=== PATIENT | male | born 1980 | race Caucasian/White ===

== ENCOUNTER 2021-12-22 11:02 | Inpatient (IN) | payer MEDICARE, MEDICAID, SELFPAY ==
[2021-12-22] VITALS (18 sets, daily range): BP systolic 156–200; BP diastolic 96–144; PULSE 90–131; RESP 14–21; TEMP 37–37.7; O2SAT 94–98; BMI 38.7
--- NOTE | ~2021-12-22 | CT_ITS ---
EXAMINATION: CTA brain carotid DATE: 12/22/2021 12:35 INDICATION: Left hemiparesis. TECHNIQUE: Computed tomographic angiography (CTA) of the head was performed with 100 mL Omnipaque-350 intravenous contrast. CTA of the neck was performed with intravenous contrast. Automated exposure co ntrol and iterative reconstruction technique were employed. The dose-length product was 1243.72 mGy-c m. Maximum intensity projection and volume rendered 3D-reconstructions were created by the [facility] on a separate workstation. COMPARISON: Head CT 12/22/2021 FINDINGS: HEAD CTA: There is hypoattenuation in the right frontoparietal region involving oh matter white mat ter, likely an acute infarct. There is hypoattenuation in the left temporal parietal occipital region involving oh matter white matter, likely an acute infarct. There is no intracranial hemorrhage or abnormal mass lesion. The ventricles are normal in size. The vertebral arteries are codominant. There is no significant stenosis of basilar artery or the posterior cerebral arteries. There is no signifi cant stenosis of the intracranial internal carotid arteries or anterior or middle cerebral arteries. The orbits are normal. There is mild mucosal thickening in the paranasal sinuses. The mastoid air rowan ls are normal. There is a 2.1 cm calcified mass in the posterior scalp, likely an old hematoma. NECK CTA: There are no pathologically enlarged lymph nodes. There is mild plaque in proximal right in ternal carotid artery. There is 0% stenosis of the proximal right internal carotid artery relative to normal distal artery lumen diameter (NASCET criteria). There is 0% stenosis of the proximal left int ernal carotid artery relative to normal distal artery lumen diameter. There is mild cervical spondylo sis. IMPRESSION: 1. Acute infarcts in the right frontoparietal region and left temporal parietal occipital region. 2. No aneurysm or significant intracranial arterial stenosis. 3. 0% stenosis of the proximal internal carotid arteries relative to normal distal artery lumen diame ters (NASCET criteria). Reviewed, dictated and finalized at location A. IMPRESSION: 1. Acute infarcts in the right frontoparietal region and left temporal parietal occipital region. 2. No aneurysm or significant intracranial arterial stenosis. 3. 0% stenosis of the proximal internal carotid arteries relative to normal dis peyman artery lumen diameters (NASCET criteria).
--- NOTE | ~2021-12-22 | XR_ITS ---
EXAMINATION: XR chest 1V portable DATE: 12/22/2021 11:21 INDICATION: Left-sided weakness and chest pain TECHNIQUE: frontal view of the chest was obtained. COMPARISON: None FINDINGS: Lung volumes are decreased particularly on the right there is elevation the right hemidiaphragm. Asym metric hazy opacities in the right mid to lower lung zone. No pneumothorax or definitive pleural effu amy. Cardiomegaly. IMPRESSION: 1. Volume loss in the right hemithorax with hazy which could represent small pleural effusion, atelec tasis or pneumonia. 2. Cardiomegaly. Reviewed, dictated and finalized at location B. IMPRESSION: 1. Volume loss in the right hemithorax with hazy which could represent small pl eural effusion, atelectasis or pneumonia. 2. Cardiomegaly.
--- NOTE | ~2021-12-22 | CT_ITS ---
EXAMINATION: CT brain wo con DATE: 12/22/2021 13:08 INDICATION: Head injury from fall out of bed TECHNIQUE: Computed tomography (CT) of the head was performed without intravenous contrast. The mA wa s adjusted according to patient size. Iterative reconstruction technique was employed. Exam dose: 68 1.00 mGy-cm total exam DLP. COMPARISON: CT brain carotid FINDINGS: Acute right parietal and left temporal parietal occipital regions are again noted. No midli ne shift. Normal ventricular sizes. No intracranial hemorrhage. No subdural or epidural hematoma. No fracture or bone destruction of the cranial vault. Small mucus retention cyst or polyp at the lower lateral wall of the left maxillary sinus. The parana lucita sinuses and mastoid air cells otherwise are normally developed and aerated. IMPRESSION: Acute right frontal and left temporal parietal occipital infarcts Reviewed, dictated and finalized at Location A. Reviewed, dictated and finalized at location A.
--- NOTE | ~2021-12-22 | CT_ITS ---
EXAMINATION: CT brain wo con DATE: 12/22/2021 11:24 INDICATION: Left-sided weakness TECHNIQUE: Computed tomography (CT) of the head was performed without intravenous contrast. Sagittal and coronal reconstructions were performed. The mA was adjusted according to patient size. Iterative reconstruction technique was employed. The dose-length product was 605.33 mGy-cm. COMPARISON: None FINDINGS: There is a large region of loss of oh-white matter differentiation centered in the left temporal pa rietal occipital region suspicious for recent infarct. Additional small region of oh-white matter d ifferentiation loss in the posterior right frontal lobe also suspicious for recent infarct. No acute intracranial hemorrhage or abnormal extra axial fluid collection. Ventricles are normal and symmetric . No mass/mass effect. 2.2 x 2.0 x 1.3 cm subcutaneous nodule at the posterior scalp with subtle inte rnal calcification most consistent with a trichilemmal cysts. The orbits, paranasal sinuses and masto id air cells are normal. IMPRESSION: 1. Regions of cytotoxic edema consistent with relatively recent infarcts, the larger involving the le ft temporal parietal occipital region and with small region in the posterior right frontal lobe. Reviewed, dictated and finalized at location B. IMPRESSION: 1. Regions of cytotoxic edema consistent with relatively recent infarcts, the l arger involving the left temporal parietal occipital region and with small rosemary on in the posterior right frontal lobe.
--- NOTE | 2021-12-22 11:10 | ECG_ITS ---
Measurements Intervals [place] Rate: 114 P: NE: 0 QRS: 22 QRSD: 93 T: -65 QT: 332 QTc: 459 Interpretive Statements ATRIAL FIBRILLATION WITH RAPID VENTRICULAR RESPONSE NONSPECIFIC T-WAVE ABNORMALITY ABNORMAL ECG NO PREVIOUS ECG AVAILABLE FOR COMPARISON Electronically Signed On 12-22-2021 16:27:46 CDT by Anjum Kong M.D.
--- NOTE | 2021-12-22 11:10 | ED.NEUROSD ---
HPI - Neuro Symptoms/Deficit General Chief Complaint: Suspected CVA Stated Complaint: chest pain,fall,L arm flaccid,LNW 2000 yest Time Seen by Provider: 12/22/21 11:09 Source: patient and EMS Mode of arrival: EMS Limitations: altered mental status and clinical condition History of Present Illness HPI Narrative: Patient is a 41-year-old male with a history of developmental delay, diabetes, presenting to the emergency department for evaluation of altered mental status, left arm weakness with last known well last night around 8 PM. Patient reportedly was found on the side of his bed unable to move his left upper extremity by caregivers who helps to take care of him. Patient has been living independently, of note, father recently . Patient is oriented to person, not to place or time. Is not able to provide any history. Given acuity of condition, was concern for acute CVA given placidity in left upper extremity. Related Data Allergies Allergy/AdvReac Type Severity Reaction Status Date / Time No Known Allergies Allergy Verified 12/22/21 12:06 Review of Systems Review of Systems: ROS unobtainable: Yes unobtainable due to mental status [facility] Social History Social History (Updated 12/22/21 @ 11:38 by Jayna Suresh MD) Smoking status: Never smoker Alcohol intake: never Substance use: never Living arrangements: alone Occupation/Education: unemployed Gender identity (if verbalized by the patient): Male Exam Narrative: GENERAL: Awake, alert, fatigued appearing HEAD: Normocephalic, atraumatic. EYES: PERRLA and EOMI. ENT: Nares clear, no rhinorrhea or epistaxis. Mucous membranes moist. NECK: Supple. CHEST: No respiratory distress, breathing even and non labored HEART: Tachycardic rate, irregularly irregular rhythm, consistent with atrial fibrillation ABDOMEN:Non distended, non tender, no grimace with palpation EXTREMITIES: Patient unable to move his left upper extremity. No lower extremity edema bilaterally. SKIN: Warm, dry, no rash. NEURO: Patient is oriented to person, not to place or time. His left upper extremity has 0/5 strength. Right upper extremity 5/5 strength. Strength in lower extremities 5/5 RLE and 3/5 LLE. Patient is not able to comprehend [id number], [id number]. No facial droop or asymmetry noted. Intact distal sensation in the right upper extremity and bilateral lower extremities. Course Vital Signs Vital signs: Vital Signs Pulse Rate 122 H 12/22/21 11:06 Respiratory Rate 21 H 12/22/21 11:06 Pulse Oximetry 95 12/22/21 11:06 Pulse Rate 95 12/22/21 14:38 Respiratory Rate 15 12/22/21 14:38 Blood Pressure 161/96 H 12/22/21 14:38 Pulse Oximetry 96 12/22/21 14:38 MDM - Neuro Symptoms/Deficit MDM Narrative Medical decision making narrative: Patient is a 41-year-old male presenting for evaluation of altered mental status, noted to have left upper extremity flaccidity on exam. Last known well greater than 12 hours ago. NIH stroke scale score of 14 however exam is limited due to the patient's baseline developmental delay. Pt noted to be hypertensive thus placed on nicardipine infusion. CT scan with evidence of cytotoxic edema with areas of numerous infarcts including parietal and frontal lobe. Unfortunately, patient is outside of the tPA window. EKG consistent with A. fib with RVR which would be a new diagnosis for the patient. Pt given IV fluids. CT reviewed. I called immediately to [facility] to arrange for the patient to be transferred. They asked for CTA head/neck prior to transfer. CTA head/neck shows no acute thrombus that is intervenable. [facility] neurology states that this patient will not be accepted for time critical diagnosis and may be transferred over the next several days if a bed is available. They have no beds available at this time they stated that we may need to manage him from an acute standpoint based on his troponin elevation
[2021-12-22 11:19] LABS: Glucose Point of Care 158 mg/dl (65-105)
--- NOTE | 2021-12-22 11:19 | PC.NURSE ---
pt at CT at this time
[2021-12-22] MEDS: SODIUM CHLORIDE 0.9% IV 1,000 ML 999 ML IV CONT ×3 (11:47→14:55)
--- NOTE | 2021-12-22 11:59 | PC.NURSE ---
This RN tried to call number in chart to update on POC. Number not in service.
[2021-12-22 12:00] LABS: Basophils Percent Auto 0.3 % (0.2-1.2); Hematocrit 41.9 % (42.0-52.0); Hemoglobin 13.7 g/dL (14.0-18.0); Immature Granulocyte Absolute 0.08 K/mm3 (0.00-0.031); Immature Granulocyte Percent A 0.5 % (0-0.5); Lymphocytes Absolute Auto 1.22 K/mm3 (0.9-3.2); Lymphocytes Percent Auto 7.8 % (18.3-44.2); Mean Corpuscular HGB Conc 32.7 g/dl (32-36); Mean Corpuscular Hemoglobin 27.7 pg (26-34); Mean Corpuscular Volume 84.8 fl (80-100); Mean Platelet Volume 12.3 fl (7.4-10.4); Monocytes Percent Auto 6.5 % (2.6-8.5); Neutrophils Absolute Auto 13.3 K/mm3 (1.3-6.7); Neutrophils Percent Auto 84.9 % (45.5-73.1); Platelet Count Result 322 k/mm3 (150-375); Red Blood Count 4.94 M/mm3 (4.6-6.20); Red Cell Distribution Width 14.2 % (11.5-14.5); White Blood Count 15.7 K/mm3 (4.5-10.0)
[2021-12-22 12:13] LABS: Alanine Aminotransferase 29 U/L (4-50); Albumin Level 4.4 g/dL (3.5-5.1); Alkaline Phosphatase 107 U/L (38-126); Anion Gap 10 mmol/L (8-16); Aspartate Amino Transferase 54 U/L (17-59); Bilirubin,Total 0.9 mg/dL (0.2-1.3); Blood Urea Nitrogen 18 mg/dL (9-20); Calcium 9.3 mg/dL (8.4-10.2); Carbon Dioxide 30 mmol/L (22-30); Chloride 101 mmol/L (98-107); Estimated Glomerular Filt Rate 52; Glucose 156 mg/dL (65-110); Potassium 3.3 mmol/L (3.4-5.0); Sodium 141 mmol/L (137-145)
[2021-12-22 12:15] LABS: INR 1.2; Partial Thromboplastin Time 24.6 SECONDS (22.3-36.8); Prothrombin Time 14.7 Seconds (11.1-14.7)
[2021-12-22] MEDS: niCARdipine 20 MG/200 ML 20 MG/200 ML BAG 50 MG IV CONT (12:39)
--- NOTE | 2021-12-22 13:06 | PC.NURSE ---
pt got up on his own to go to the bathroom and fell w/ IV pole. pt IV pulled out. pt back from CT scan now.
--- NOTE | 2021-12-22 13:20 | PC.NURSE ---
bed alarm placed under pt. call light within reach.
[2021-12-22 13:32] LABS: Add Urine Microscopic? YES; Appearance Urine Clear (Clear); Bilirubin Urine Negative (Negative); Blood Urine 1+ (Negative); Color Urine Yellow (Yellow); Glucose Urine UA 1+ mg/dL (Negative); Ketones Urine Negative (Negative); Leukocyte Esterase Ur Negative LEU/UL (Negative); Mucus Urine Rare /lpf; Nitrate Urine Negative (Negative); Protein Urine 2+ mg/dL (Negative); RBC Urine 0-2 /hpf (0-2); Specific Grav Ur 1.016 (1.001-1.035); Urobilinogen Urine Negative mg/dL (<2.0); WBC Urine 0-3 /hpf
[2021-12-22 13:34] LABS: Lactic Acid Reflex 2.7 mmol/L (0.7-2.1)
[2021-12-22 14:00] LABS: SARS-CoV-2 RNA PCR Negative
[2021-12-22 14:04] LABS: Thyroid Stimulating Hormone 0.895 uIU/mL (0.465-4.680)
[2021-12-22 14:24] LABS: Creatine Kinase 316 U/L (55-170)
[2021-12-22] MEDS: dilTIAZem HCl INJ 25 MG/5 ML VIAL 10 MG IV PUSH (14:32)
--- NOTE | 2021-12-22 14:44 | ECG_ITS ---
Measurements Intervals [place] Rate: 99 P: NE: 0 QRS: 32 QRSD: 96 T: 259 QT: 388 QTc: 498 Interpretive Statements ATRIAL FIBRILLATION NONSPECIFIC T-WAVE ABNORMALITY COMPARED TO ECG 12/22/2021 11:31:36 NO SIGNIFICANT CHANGES Electronically Signed On 12-22-2021 16:49:17 CDT by Anjum Kong M.D.
[2021-12-22] MEDS: HEPARIN SOD/D5W 100 UNITS/ML 25,000 UNITS/250 ML BAG 15 UNITS IV CONT (14:57)
[2021-12-22] MEDS: dilTIAZem 100 MG/100 ML 100 MG/100 ML BAG IV CONT (15:07)
[2021-12-22 15:48] LABS: Basophils Absolute Auto 0.1 K/mm3 (0.0-0.1); Basophils Percent Auto 0.3 % (0.2-1.2); Eosinophils Percent Auto 0.1 % (0-4.4); Hematocrit 43.2 % (42.0-52.0); Hemoglobin 14.2 g/dL (14.0-18.0); Immature Granulocyte Absolute 0.07 K/mm3 (0.00-0.031); Immature Granulocyte Percent A 0.4 % (0-0.5); Lymphocytes Absolute Auto 1.42 K/mm3 (0.9-3.2); Lymphocytes Percent Auto 8.9 % (18.3-44.2); Mean Corpuscular HGB Conc 32.9 g/dl (32-36); Mean Corpuscular Hemoglobin 27.9 pg (26-34); Mean Corpuscular Volume 84.9 fl (80-100); Mean Platelet Volume 12.1 fl (7.4-10.4); Monocytes Absolute Auto 0.9 K/mm3 (0.1-0.6); Monocytes Percent Auto 5.4 % (2.6-8.5); Neutrophils Absolute Auto 13.6 K/mm3 (1.3-6.7); Neutrophils Percent Auto 84.9 % (45.5-73.1); Platelet Count Result 361 k/mm3 (150-375); Red Blood Count 5.09 M/mm3 (4.6-6.20); Red Cell Distribution Width 14.2 % (11.5-14.5)
[2021-12-22 15:59] LABS: INR 1.2; Partial Thromboplastin Time 30.6 SECONDS (22.3-36.8); Prothrombin Time 14.6 Seconds (11.1-14.7)
--- NOTE | 2021-12-22 16:10 | ADMGEN ---
This patient, Ander De Souza, was admitted to Intensive Care Unit-10. Patient/family oriented to hospital policies and general routines including ID bracelet, bed and alarms, visiting hours, pain management, procedures, bathroom and other care routines, personal items, smoking policy, room service/diet, and visiting hours. Information on how to activate the Rapid Response Team has been discussed. Patient/Family are encouraged to report perceived risks to care and to ask questions if they do not understand what they are told or what they should do.
[2021-12-22 16:22] LABS: Reflex Lactic Acid Yes or No Add Lactic
--- NOTE | 2021-12-22 16:22 | ADMGEN ---
This patient, Ander De Souza, was admitted to Intensive Care Unit-10 at 1601. Patient/family oriented to hospital policies and general routines including ID bracelet, bed and alarms, visiting hours, pain management, procedures, bathroom and other care routines, personal items, smoking policy, room service/diet, and visiting hours. Information on how to activate the Rapid Response Team has been discussed. Patient/Family are encouraged to report perceived risks to care and to ask questions if they do not understand what they are told or what they should do.
--- NOTE | 2021-12-22 17:14 | PM.CNCAR ---
Assessment and Plan Assessment and plan (1) Acute CVA (cerebrovascular accident): Code(s): I63.9 - Cerebral infarction, unspecified Status: Acute Assessment and Plan: Probably from cardioembolization. Neurology consulted. (2) Atrial fibrillation with rapid ventricular response: Code(s): I48.91 - Unspecified atrial fibrillation Status: Acute Assessment and Plan: [id number]. Started on heparin drip in ER to prevent further cardioembolization. Rate control with Diltiazem 10 mg/hr. (3) Elevated troponin: Code(s): R77.8 - Other specified abnormalities of plasma proteins Status: Acute Assessment and Plan: Doubt ACS as he does not have signs/symptoms of it. Troponin 4.1, then 4.5. Probably due to acute stroke, hypertensive urgency, rapid atrial fibrillation. Obtain echo to check for wall motion abnormalities. Trend troponin. History of Present Illness History of Present Illness Consult date/time: 12/22/21 17:14 Reason for consult: Elevated troponin, atrial fib with RVR 41 yr old man presented to ER with acute left arm weakness. He has a history of developmental delay and cannot provide any useful information, DM. Patient is pleasant, but oriented to name only. Denies any discomfort and looks comfortable. He was noted to have left arm weakness today and CT brain confirmed acute stroke with cytotoxic edema with areas of numerous infarcts including parietal and frontal lobe. Dr. Prabhakar attempted to transfer to [facility] but was not accepted for time critical diagnosis as CTA head/neck did not show any thrombus. EKG showed new onset atrial fib with RVR. Troponin elevated at 4.1 then 4.5. Reason For Visit: Acute CVA/Elevated troponin/a fib with RVR Review of Systems Review of Systems: ROS unobtainable: Yes unobtainable due to mental status [facility] Social History Social History (Updated 12/22/21 @ 11:38 by Jayna Suresh MD) Smoking status: Never smoker Alcohol intake: never Substance use: never Living arrangements: alone Occupation/Education: unemployed Gender identity (if verbalized by the patient): Male Meds Home Medications and Allergies Allergies Allergy/AdvReac Type Severity Reaction Status Date / Time No Known Allergies Allergy Verified 12/22/21 12:06 Vital Signs Vital Signs - 24 hr 12/22/21 11:06 12/22/21 11:10 12/22/21 11:33 Pulse Rate 122 H 115 H 122 H Respiratory Rate 21 H 14 14 Blood Pressure 186/135 H 186/135 H Pulse Oximetry 95 95 98 12/22/21 12:39 12/22/21 13:23 12/22/21 13:58 Pulse Rate 131 H 122 H 129 H Respiratory Rate 21 H 21 H Blood Pressure 176/144 H 156/134 H 175/129 H Pulse Oximetry 94 94 12/22/21 14:37 12/22/21 14:38 12/22/21 15:07 Pulse Rate 106 H 95 113 H Respiratory Rate 15 Blood Pressure 161/96 H 161/96 H 180/107 H Pulse Oximetry 96 12/22/21 16:00 Pulse Rate 128 H Respiratory Rate 17 Blood Pressure 200/116 H Pulse Oximetry 95 Exam Const: General: cooperative, comfortable and alert Orientation/consciousness: oriented to person, No oriented to place and No oriented to time Resp: Auscultation: clear to auscultation bilaterally, no crackles, no rales, no rhonchi and no wheezes Cardio: Jugular venous distension: no JVD Rate: tachycardic Rhythm: abnormal rhythm Heart sounds: no murmurs Peripheral pulses: dorsalis pedis present GI: GI Palp: No abdominal tenderness and Yes Soft to palpation Neuro: General: oriented to person, No oriented to place and No oriented to time Extrem: Right lower extremity: no edema Left lower extremity: no edema Results Labs and Meds Result diagrams: 12/22/21 15:30 12/22/21 11:31 Lab results: Cardiac Enzymes 12/22/21 12/22/21 Range/Units 11:31 15:30 AST 54 (17-59) U/L Troponin I 4.140 H* 4.500 H* (0.000-0.034) ng/mL Coagulation 12/22/21 12/22/21 12/22/21 Range/Units 11:31 15:29 15:30 PT 14.7 1
[2021-12-22 17:27] LABS: Lactic Acid 1.9 mmol/L (0.7-2.1)
[2021-12-22] MEDS: niCARdipine 20 MG/200 ML 20 MG/200 ML BAG 25 MG IV CONT (18:13)
--- NOTE | 2021-12-22 19:15 | PM.IMHP ---
H&P: HPI History of Present Illness Date/Time: Patient requires inpatient monitoring with expected length of stay to exceed 2 midnights for management of care. 12/22/21 19:15 Chief Complaint: Altered mental status Narrative: Mr. De Souza is a 41-year-old gentleman who is unable to give me any type of history of what has occurred. Patient tends to repeat any sense that he is given. Patient states I am sorry overnight over. Patient is unable to tell me of what occurred this morning. Per emergency room records patient was found at home on the for by a caregiver. After much investigation it was discovered that patient does have a mother who is still alive and she was contacted. Patient's mother's name is Valencia and her phone number is . Patient's mother states that she typically does talk to the patient daily, but she did not speak with him yesterday because she herself is sick. Patient's mother states that she does not know with significant amount of history on the patient since he had been living with his father. Patient's mother states that patient's father on 08/24/2021 and the patient found his father on the floor. Per emergency records patient typically is checked on daily by home health workers and has mentation of a 11-year-old. It was noted that patient was recently at [facility] in [place] in May of 2021. At that point in time patient was taken there was noted to be in atrial fibrillation with a rapid ventricular response. Patient had presented with shortness of breath that had been increasing over the last few days. Patient underwent a CARROL and cardioversion and was successfully cardioverted into a normal sinus rhythm. At discharge patient was to be taking Eliquis 5 mg twice daily and diltiazem 240 mg once daily. Patient was also to follow up with Cardiology, but we are unsure if this ever occurred. Patient's carorl showed a left ventricle that appears normal in size. Mild wall motion abnormality. Mild concentric left ventricular hypertrophy. Ejection fraction of 45%. Patient's left atrium was mildly dilated. His left atrial appendage shows no thrombus or smoke and he underwent successful cardioversion at that time. Patient was given sedation and was shocked with a synchronized biphasic monitor at 360 joules. Today upon evaluation in emergency room patient was noted to be in atrial fibrillation with a rapid ventricular response and he was noted to be significantly hypertensive. Patient was also unable to move his left side and he underwent CT scan of the brain. There is a CT scan was performed at 11:24 a.m. today and showed regions of cytotoxic edema consistent with relatively recent infarcts, the largest involving the left temporal parietal occipital region with a small region of the posterior right frontal lobe. Patient did underwent CTA of the head neck it showed acute infarcts in the right frontoparietal region and left temporoparietal occipital region. New aneurysms or significant intracranial arterial stenosis. 0 % stenosis of the proximal internal carotid arteries relative to normal distal lumen diameters. Unfortunately patient did attempt to get out of bed by himself and he did fall and hit his head and a another CT scan was performed that showed no change from previous. Patient was also noted to have elevated cardiac enzymes with a troponin of 4. [facility] was contacted and transfer was attempted since the patient was noted to be an acute stroke, but we are unsure of what time this stroke actually occurred because patient was found down this morning by a caregivers and they were unaware how long patient has been lying on the floor. [facility] stated that they would accept the patient, but they had no beds available and that he could be managed at this establishment. After discussion with Cardiology, Neurology, and remarketing manager was decided the patient will be plac
[2021-12-22 20:58] LABS: Glucose Point of Care 123 mg/dl (65-105)
[2021-12-22 21:06] LABS: Hematocrit 43.6 % (42.0-52.0); Hemoglobin 13.6 g/dL (14.0-18.0)
[2021-12-22 21:11] LABS: Partial Thromboplastin Time 45.4 SECONDS (22.3-36.8)
[2021-12-22] MEDS: HEPARIN SODIUM 5,000 UNITS/ML VIAL 8000 UNITS IV PUSH (21:24)
[2021-12-22 21:30] LABS: Anion Gap 10 mmol/L (8-16); Blood Urea Nitrogen 13 mg/dL (9-20); Calcium 8.5 mg/dL (8.4-10.2); Carbon Dioxide 28 mmol/L (22-30); Chloride 104 mmol/L (98-107); Estimated CRCL calculation 111 ml/min; Estimated Glomerular Filt Rate > 60; Glucose 121 mg/dL (65-110); Potassium 3.2 mmol/L (3.4-5.0); Sodium 142 mmol/L (137-145)
[2021-12-23] VITALS (22 sets, daily range): BP systolic 107–197; BP diastolic 73–141; PULSE 71–105; RESP 14–22; TEMP 37.8–38; O2SAT 92–97
--- NOTE | 2021-12-23 | ECHO_ITS ---
Patient Info Name: Ander De Souza Age: 41 years : 1980 Gender: Male Ht: 72 in Wt: 291 lbs BSA: 2.64 m2 HR: 81 bpm BP: 163 / 102 mmHg Heart Rhythm: Atrial Fibrillation Technical Quality: Poor Exam Date: 12/23/2021 1:17 PM Exam Location: [facility] Pulmonary Patient Status: Inpatient Admit Date: 12/22/2021 Staff Ordering Physician: Ricardo Orellana DO Loom Fixer Supervisor: Matthew Guerrero RDCS, RT Attending Provider: Willian Orellana MD Referring Physician: Esteban REDMOND; Exam Type: CA echo doppler color flow Study Info Indications I48.1 - Persistent atrial fibrillation I50.9 - Heart failure, unspecified Complete two-dimensional, color flow and Doppler transthoracic echocardiogram is performed. Summary 1. Complete two-dimensional, color flow and Doppler transthoracic echocardiogram is performed. 2. Technically suboptimal study due to poor sonographic images. 3. Left ventricular chamber dimension is normal. 4. Left ventricular systolic function is normal, estimated at 60-65%. 5. There is moderately increased left ventricular wall thickness. 6. The left ventricular diastolic function is abnormal. 7. E/e' 14 is mildly elevated. 8. Atrial fibrillation. 9. Left atrial chamber dimension is moderately enlarged. 10. There is mild mitral valve regurgitation. Left Ventricle E/e' 14 is mildly elevated. Technically suboptimal study due to poor sonographic images. Atrial fibrillation. Left ventricular chamber dimension is normal. Left ventricular systolic function is normal, estimated at 60-65%. There is moderately increased left ventricular wall thickness. The left ventricular diastolic function is abnormal. Right Ventricle Right ventricular systolic function is normal based on normal TAPE 1.9 cm. Right ventricular chamber dimension is not well visualized. Left Atria Left atrial chamber dimension is moderately enlarged. Right Atria Right atrial chamber dimension is not well visualized. Aortic Valve The aortic valve is trileaflet. There is no aortic valve stenosis. There is no aortic valve regurgitation. Pulmonic Valve There is no pulmonic regurgitation. Mitral Valve There is no mitral valve stenosis. There is mild mitral valve regurgitation. Tricuspid Valve There is no tricuspid valve regurgitation. Pericardium/Pleural There is no pericardial effusion. Inferior Vena Cava Normal inferior vena cava with >50% collapse upon inspiration consistent with normal right atrial pressure, 5 mmHg. Aorta The aortic root size at the sinus of Valsalva is normal. Left Ventricular Outflow Tract Name Value Normal LVOT 2D LVOT Diameter 2.0 cm LVOT Doppler LVOT Peak Gradient 2 mmHg LVOT Mean Gradient 1 mmHg LVOT VTI 15 cm LVOT VTI/AV VTI Ratio 0.8 LVOT Stroke Volume 50 ml LVOT CO 4.8 l/min LVOT CI 1.8 l/min/m2 Mitral Valve
[2021-12-23] MEDS: dilTIAZem 100 MG/100 ML 100 MG/100 ML BAG 10 MG IV CONT ×3 (00:26→20:14)
[2021-12-23 04:28] LABS: Basophils Absolute Auto 0.1 K/mm3 (0.0-0.1); Basophils Percent Auto 0.5 % (0.2-1.2); Eosinophils Absolute Auto 0.1 K/mm3 (0-0.3); Eosinophils Percent Auto 0.7 % (0-4.4); Hematocrit 45.5 % (42.0-52.0); Hemoglobin 14.2 g/dL (14.0-18.0); Immature Granulocyte Absolute 0.08 K/mm3 (0.00-0.031); Immature Granulocyte Percent A 0.6 % (0-0.5); Lymphocytes Percent Auto 16.6 % (18.3-44.2); Mean Corpuscular HGB Conc 31.2 g/dl (32-36); Mean Corpuscular Hemoglobin 27.5 pg (26-34); Mean Platelet Volume 12.2 fl (7.4-10.4); Monocytes Absolute Auto 0.7 K/mm3 (0.1-0.6); Monocytes Percent Auto 5.6 % (2.6-8.5); Neutrophils Absolute Auto 10.1 K/mm3 (1.3-6.7); Platelet Count Result 314 k/mm3 (150-375); Red Blood Count 5.17 M/mm3 (4.6-6.20); Red Cell Distribution Width 14.5 % (11.5-14.5); White Blood Count 13.2 K/mm3 (4.5-10.0)
[2021-12-23 04:39] LABS: Alanine Aminotransferase 26 U/L (4-50); Albumin Level 4.3 g/dL (3.5-5.1); Alkaline Phosphatase 118 U/L (38-126); Anion Gap 9 mmol/L (8-16); Aspartate Amino Transferase 45 U/L (17-59); Bilirubin,Total 1.1 mg/dL (0.2-1.3); Blood Urea Nitrogen 12 mg/dL (9-20); Calcium 8.8 mg/dL (8.4-10.2); Carbon Dioxide 28 mmol/L (22-30); Chloride 104 mmol/L (98-107); Estimated CRCL calculation 103 ml/min; Estimated Glomerular Filt Rate > 60; Glucose 126 mg/dL (65-110); Magnesium 1.8 mg/dL (1.6-2.3); Potassium 3.1 mmol/L (3.4-5.0); Sodium 141 mmol/L (137-145)
[2021-12-23 04:41] LABS: Partial Thromboplastin Time 97.3 SECONDS (22.3-36.8)
[2021-12-23] MEDS: HEPARIN SOD/D5W 100 UNITS/ML 25,000 UNITS/250 ML BAG 19 UNITS IV CONT (05:35)
--- NOTE | 2021-12-23 08:00 | PM.PNCARD ---
Progress Note: A&P Assessment and Plan (1) Acute CVA (cerebrovascular accident): Code(s): I63.9 - Cerebral infarction, unspecified Status: Acute Assessment and Plan: Probably from cardioembolization. Neurology consulted. (2) Atrial fibrillation with rapid ventricular response: Code(s): I48.91 - Unspecified atrial fibrillation Status: Acute Assessment and Plan: [id number] 3. Started on heparin drip in ER to prevent further cardioembolization, and continue if OK from neurology standpoint. Rate controlled with Diltiazem 10 mg/hr. (3) Elevated troponin: Code(s): R77.8 - Other specified abnormalities of plasma proteins Status: Acute Assessment and Plan: Doubt ACS as he does not have signs/symptoms of it. Troponin peaked at 4.5. Probably due to acute stroke, hypertensive urgency, rapid atrial fibrillation. Obtain echo to check for wall motion abnormalities. Subjective Date/time seen: 12/23/21 08:00 Alert and oriented x1 to name only. Appears comfortable. Exam Const: General: cooperative, comfortable and alert Orientation/consciousness: oriented to person, No oriented to place and No oriented to time Resp: Auscultation: clear to auscultation bilaterally, no crackles, no rales, no rhonchi and no wheezes Cardio: Jugular venous distension: no JVD Rate: tachycardic Rhythm: abnormal rhythm Heart sounds: no murmurs Peripheral pulses: dorsalis pedis present GI: GI Palp: No abdominal tenderness and Yes Soft to palpation Neuro: General: oriented to person, No oriented to place and No oriented to time Extrem: Right lower extremity: no edema Left lower extremity: no edema Objective Data Vital Signs Vital Signs: Vital Signs - 24 hr 12/22/21 11:06 12/22/21 11:10 12/22/21 11:33 Temperature Pulse Rate 122 H 115 H 122 H Respiratory Rate 21 H 14 14 Blood Pressure 186/135 H 186/135 H Pulse Oximetry 95 95 98 12/22/21 12:39 12/22/21 13:23 12/22/21 13:58 Temperature Pulse Rate 131 H 122 H 129 H Respiratory Rate 21 H 21 H Blood Pressure 176/144 H 156/134 H 175/129 H Pulse Oximetry 94 94 12/22/21 14:37 12/22/21 14:38 12/22/21 15:07 Temperature Pulse Rate 106 H 95 113 H Respiratory Rate 15 Blood Pressure 161/96 H 161/96 H 180/107 H Pulse Oximetry 96 12/22/21 16:00 12/22/21 16:15 12/22/21 17:00 Temperature 98.6 F 99 F Pulse Rate 128 H 116 H 107 H Respiratory Rate 17 21 H 14 Blood Pressure 200/116 H 182/127 H 187/120 H Pulse Oximetry 95 94 97 12/22/21 18:00 12/22/21 18:13 12/22/21 19:42 Temperature 98.9 F Pulse Rate 92 90 Respiratory Rate 14 Blood Pressure 172/128 H 172/128 H 158/102 H Pulse Oximetry 95 12/22/21 20:00 12/22/21 21:45 12/22/21 22:00 Temperature 99.4 F 99.8 F H 99.8 F H Pulse Rate 119 H 95 Respiratory Rate 16 16 Blood Pressure 177/119 H 179/107 H Pulse Oximetry 94 94 12/23/21 00:00 12/23/21 00:26 12/23/21 02:00 Temperature 100.1 F H 100.3 F H Pulse Rate 88 98 84 Respiratory Rate 16 16 Blood Pressure 182/119 H 177/114 H 182/111 H Pulse Oximetry 92 92 12/23/21 04:00 12/23/21 04:24 12/23/21 05:42 Temperature 100.1 F H Pulse Rate 91 91 Respiratory Rate 14 Blood Pressure 177/111 H 177/111 H 173/110 H Pulse Oximetry 93 12/23/21 06:00 Temperature 100.1 F H Pulse Rate 102 H Respiratory Rate 14 Blood Pressure 163/102 H Pulse Oximetry 93 Intake/Output Intake/Output: Intake & Output 12/20/21 12/21/21 12/22/21 12/23/21 23:59 23:59 23:59 23:59 Intake Total 3100 425 Output Total 550 800 Balance 2550 -375 Meds/Results Medications: Active Medications Generic Name Dose Route Start Last Admin Trade Name Freq PRN Reason Stop Dose Admin Dextrose 12.5 gm 12/22/21 19:06 Dextrose 50% 25 Gm/50 Ml Syringe IV PUSH PRN PRN Hypoglycemia Protocol Glucagon 1 mg 12/22/21 19:06 Glucagon For Inj 1 Mg Vial IM PRN PRN Hypoglycemia
--- NOTE | 2021-12-23 09:18 | WPDCNINT ---
Assessment and Plan Assessment and plan (1) Acute CVA (cerebrovascular accident): Code(s): I63.9 - Cerebral infarction, unspecified Status: Acute Assessment and Plan: Patient was found down next to his bed in the house, with left-sided weakness mainly left upper arm, last known well was greater than 12 hours. -12/22: CT brain - Regions of cytotoxic edema consistent with relatively recent infarcts, the larger involving the left temporal parietal occipital region and with small region in the posterior right frontal lobe -the ER physician discussed these findings with [facility] neurology recommends CTA of the head and neck - 12/22 CTA head and neck - Acute infarcts in the right frontoparietal region and left temporal parietal occipital region. 2. No aneurysm or significant intracranial arterial stenosis. 3. 0% stenosis of the proximal internal carotid arteries relative to normal distal artery lumen diameters (NASCET criteria). -after discussion with neurology and Cardiology it was decided to start patient on heparin infusion without any heparin bolus, as he has atrial fibrillation with rapid ventricular response. Risk of hemorrhagic conversion is high and the neurologist and funding specialist are aware -will have PT/ OT follow the patient -will obtain bedside speech evaluation -rehab consultation (2) Atrial fibrillation with rapid ventricular response: Code(s): I48.91 - Unspecified atrial fibrillation Status: Acute Assessment and Plan: Patient has a history of AFib RVR with status post VIRIDIANA and cardioversion at [facility] in May 2021, and was discharged on oral diltiazem and Eliquis -patient was found to be in AFib RVR upon this admission on 12/22/2021 in the ER, nicardipine was switched to Cardizem infusion -currently remains in rate controlled AFib/A flutter -continue heparin infusion (3) Hypertensive urgency: Code(s): I16.0 - Hypertensive urgency Status: Acute Assessment and Plan: Continue Cardizem infusion, nicardipine was discontinued -maintain SBP 160-180 mmHg -patient is on amlodipine, diltiazem, losartan, prazosin at home for hypertension, also on apixaban (4) Developmental delay, moderate: Code(s): R62.50 - Unspecified lack of expected normal physiological development in childhood Status: Acute Assessment and Plan: Chronic (5) Elevated troponin: Code(s): R77.8 - Other specified abnormalities of plasma proteins Status: Acute Assessment and Plan: Elevated troponin could be related to AFib RVR, acute coronary syndrome -troponin of 0.14 and 4.5. -cardiology evaluated the patient, cardiology feels that the troponin leak is secondary to acute stroke, hypertensive urgency and AFib RVR -continue heparin infusion (6) Diabetes: Code(s): E11.9 - Type 2 diabetes mellitus without complications Status: Acute Assessment and Plan: Continue sliding scale insulin Accu-Cheks Additional Plan DVT prophylaxis: On heparin infusion Stress ulcer prophylaxis: Protonix Code status: Full code Critical care time spent: 47 minutes This dictation may have been done utilizing a voice recognition system. Attempts have been made to correct errors. However, there may be uncorrected grammatical, spelling, and recognition errors present. Due to a high probability of clinically significant, life threatening deterioration, the patient required my highest level of preparedness to intervene emergently and I personally spent this critical care time directly and personally managing the patient. This critical care time included obtaining a history; examining the patient; pulse oximetry; ordering and review of studies; arranging urgent treatment with development of a management plan; evaluation of patient's response to treatment; frequent reassessment; and discussions with other providers. It was exclusive of separately billable
[2021-12-23] MEDS: POTASSIUM CHLORIDE INJ 40 MEQ in SODIUM CHLORIDE 0.9% IV 500 ML 130 MEQ IVPB (09:58)
[2021-12-23] MEDS: LACTATED RINGERS 1,000 ML 75 ML IV CONT (09:59)
[2021-12-23] MEDS: PANTOPRAZOLE SODIUM IV 40 MG VIAL IV PUSH (10:10)
[2021-12-23 10:11] LABS: Hematocrit 42.1 % (42.0-52.0); Hemoglobin 13.6 g/dL (14.0-18.0)
[2021-12-23 10:27] LABS: Partial Thromboplastin Time 65.9 SECONDS (22.3-36.8)
--- NOTE | 2021-12-23 10:57 | PCSTNOTE ---
Please refer to the Bedside Swallow Evaluation in the EMR. Please note, silent aspiration cannot be ruled out at bedside.
[2021-12-23] MEDS: HEPARIN SODIUM 5,000 UNITS/ML VIAL 4000 UNITS IV PUSH (12:22)
[2021-12-23] MEDS: MAGNESIUM SULF 2 GM/WATER 50ML 2 GM/50 ML BAG IVPB (12:27)
[2021-12-23 12:32] LABS: Glucose Point of Care 154 mg/dl (65-105)
--- NOTE | 2021-12-23 14:09 | WPDNEURCNPN ---
Assessment and Plan Additional Plan treatment with continued as such that is kick care for the diabetes care for the atrial fibrillation and hypertension Consult date: 12/23/21 HPI: Ander De Souza is a 41 year old male Has been admitted to the hospital through the emergency room for the complaints of change in the mental status and clinical condition. Patient carries the diagnosis of developmental delay, diabetes mellitus, at the time of initial evaluation it was reported there was change in his mental status along with the weakness of the left upper extremity he was found on the bed unable to move his left upper extremity by the caregiver patient's father has recently and he was noted levo oriented to person at the time of initial evaluation though he was unable to provide any his specific history, as per the review he was not known to be allergic to any medication, he was not a smoker he was not alcohol drinker and his examination documented tachycardia with irregularity that is atrial fibrillation, inability to move the left upper extremity though he was oriented to person, CT scan documented numerous infarcts in the parietal and the frontal lobe obviously outside of the tPA window EKG documented atrial fibrillation with RVR he received IV fluids CTA was done in the emergency room sent to [facility] was contacted the patient was not accepted for the transfer at that particular time he was started on anticoagulation by the ice puller without heparin bolus his lab revealed no significant abnormalities except the elevated troponin of 4.140 and protein urea also lactic acid 2.7 and CPK of 316 their evaluation included the CT scan of the head which mentioned above chest x-ray was compatible with cardiomegaly and EKG with atrial fibrillation with rapid ventricular response is Review of Systems Review of Systems: All systems reviewed & are unremarkable except as noted in HPI and below [facility] Past Medical History Medical History Atrial fibrillation with rapid ventricular response Diabetes Hiatal hernia Hypertension Family History Family History Father , Cause of unknown No problems noted. Mother Chronic renal disease, stage IV Other Unknown family medical history Social History Social History Smoking status: Unknown if ever smoked Alcohol intake: unknown Substance use: unknown Substance use type: unknown Living arrangements: alone Occupation/Education: unemployed Gender identity (if verbalized by the patient): Male Spiritual care concerns: Yes (Holiness) Meds Home Medications and Allergies Home Medications Medication Instructions Recorded Confirmed Type amlodipine 10 mg PO DAILY 12/22/21 12/22/21 History apixaban 5 mg PO BID 12/22/21 12/22/21 History diltiazem HCl 240 mg PO DAILY 12/22/21 12/22/21 History ezetimibe [Zetia] 10 mg PO DAILY 12/22/21 12/22/21 History fluoxetine 40 mg PO BID 12/22/21 12/22/21 History losartan 100 mg PO DAILY 12/22/21 12/22/21 History mirtazapine 15 mg PO HS 12/22/21 12/22/21 History pravastatin 40 mg PO DAILY 12/22/21 12/22/21 History prazosin 2 mg PO HS 12/22/21 12/22/21 History Allergies Allergy/AdvReac Type Severity Reaction Status Date / Time No Known Allergies Allergy Verified 12/22/21 12:06 Vital Signs Vital Signs - 24 hr 12/22/21 14:37 12/22/21 14:38 12/22/21 15:07 Temperature Pulse Rate 106 H 95 113 H Respiratory Rate 15 Blood Pressure 161/96 H 161/96 H 180/107 H Pulse Oximetry 96 12/22/21 16:00 12/22/21 16:15 12/22/21 17:00 Temperature 37.0 C 37.2 C Pulse Rate 128 H 116 H 107 H Respiratory Rate 17 21 H 14 Blood Pressure 200/116 H 182/127 H 187/120 H Pulse Oximetry 95 94 97 12/22/21 18:00 12/22/21 18:13 12/22/21 19:42 Temperature 37.2 C Puls
--- NOTE | 2021-12-23 16:14 | PM.IMPN ---
Progress Note: A&P Assessment and Plan (1) Acute CVA (cerebrovascular accident): Code(s): I63.9 - Cerebral infarction, unspecified Status: Acute Assessment and Plan: Last well known more than 12 hours prior to arrival. Not a tPA candidate. CT head with regions of cytotoxic edema consistent with relatively recent infarcts, the largest involving the left temporoparietal occipital region with small region in the posterior right frontal lobe Multiple areas of involvement of the brain suggestive of cardioembolic origin of stroke He does have underlying atrial fibrillation CTA head and neck done showed acute infarct in the right frontotemporal parietal region and left temporoparietal occipital region. With 0% stenosis in the proximal internal carotid arteries and no aneurysm or significant intracranial arterial stenosis Neurology has been consulted. Allow for permissive hypertension with goal blood pressure of 1 60-180 ED Have contacted [facility] however bed not available awaiting transfer to [facility] for further treatment Neurology okay with heparin drip anticoagulation, which was discussed with Neurology and Cardiology at the time of admission.. Risk of hemorrhagic conversion is high PT OT to evaluate and treat Echo with EF 60-65% mild MR (2) Elevated troponin: Code(s): R77.8 - Other specified abnormalities of plasma proteins Status: Acute Assessment and Plan: Patient's initial troponin was 4.14 and 2nd troponin is 4.5. Cardiology been consulted. Does not suspect ACS bleed troponin leak. Probably due to acute stroke her hypertension and/or rapid atrial fibrillation. Echo has been ordered pending resolved (3) Atrial fibrillation with rapid ventricular response: Code(s): I48.91 - Unspecified atrial fibrillation Status: Acute Assessment and Plan: Patient was seen last year at [facility] for atrial fibrillation with rapid ventricular response. Patient was cardioverted and was sent home on Eliquis as well as Cardizem. It does not appear the patient was taking those medications. Unsure if patient has follow-up with Cardiology since that point in time since no one helps to care for the patient. Patient remains on Cardizem drip and his ventricular rate been controlled. Remains on anticoagulation with heparin drip for his atrial fibrillation as well as cardioembolic stroke (4) Diabetes: Code(s): E11.9 - Type 2 diabetes mellitus without complications Status: Acute Assessment and Plan: The patient does take metformin at home. Which is placed on hold Monitor Accu-Cheks and continue sliding scale insulin (5) Hypertension: Code(s): I10 - Essential (primary) hypertension Status: Acute Assessment and Plan: Blood pressure uncontrolled with hypertensive emergency on admission. With acute stroke do need to allow for permissive hypertension. He is on Cardizem drip for rate control. Early initially was started on nicardipine GTT which has been discontinued now Goal blood pressure systolic 160-180 mm Hg Continue to monitor (6) Leukocytosis: Code(s): D72.829 - Elevated white blood cell count, unspecified Status: Acute Assessment and Plan: Unclear etiology no source of infection evident, UA is negative, chest x-ray with haziness in right hemithorax could represent small pleural effusion atelectasis or pneumonia Mild lactic acidosis on admission On empiric cefepime. Continue cefepime for now Leukocytosis improved a bit today He is also febrile Follow cultures Additional Plan DVT prophylaxis heparin infusion Stress ulcer prophylaxis Protonix Code status full code Subjective Date/time seen: 12/23/21 16:14 Interval history: HPI:Mr. De Souza is a 41-year-old gentleman who is unable to give me any type of history of what has occurred. Patient tends to repeat any sense that he is given. Patient state
[2021-12-23 16:31] LABS: Partial Thromboplastin Time 82.2 SECONDS (22.3-36.8)
[2021-12-23] MEDS: HEPARIN SOD/D5W 100 UNITS/ML 25,000 UNITS/250 ML BAG 21 UNITS IV CONT (19:07)
[2021-12-23 20:19] LABS: Glucose Point of Care 183 mg/dl (65-105)
[2021-12-23 22:19] LABS: Partial Thromboplastin Time 84.6 SECONDS (22.3-36.8)
[2021-12-24] VITALS (16 sets, daily range): BP systolic 130–201; BP diastolic 77–135; PULSE 63–104; RESP 12–21; TEMP 37.1–37.6; O2SAT 95–98
[2021-12-24 01:45] LABS: Glucose Point of Care 130 mg/dl (65-105)
[2021-12-24 03:43] LABS: Basophils Absolute Auto 0.1 K/mm3 (0.0-0.1); Basophils Percent Auto 0.6 % (0.2-1.2); Eosinophils Absolute Auto 0.2 K/mm3 (0-0.3); Eosinophils Percent Auto 1.7 % (0-4.4); Hemoglobin 13.5 g/dL (14.0-18.0); Immature Granulocyte Absolute 0.09 K/mm3 (0.00-0.031); Immature Granulocyte Percent A 0.8 % (0-0.5); Lymphocytes Absolute Auto 2.47 K/mm3 (0.9-3.2); Lymphocytes Percent Auto 21.9 % (18.3-44.2); Mean Corpuscular HGB Conc 32.9 g/dl (32-36); Mean Corpuscular Hemoglobin 28.3 pg (26-34); Mean Platelet Volume 11.9 fl (7.4-10.4); Monocytes Absolute Auto 0.9 K/mm3 (0.1-0.6); Monocytes Percent Auto 7.6 % (2.6-8.5); Neutrophils Absolute Auto 7.6 K/mm3 (1.3-6.7); Neutrophils Percent Auto 67.4 % (45.5-73.1); Platelet Count Result 294 k/mm3 (150-375); Red Blood Count 4.77 M/mm3 (4.6-6.20); Red Cell Distribution Width 14.3 % (11.5-14.5); White Blood Count 11.3 K/mm3 (4.5-10.0)
[2021-12-24 04:01] LABS: Partial Thromboplastin Time 125.9 SECONDS (22.3-36.8)
[2021-12-24 04:06] LABS: Alanine Aminotransferase 20 U/L (4-50); Albumin Level 3.8 g/dL (3.5-5.1); Alkaline Phosphatase 92 U/L (38-126); Anion Gap 6 mmol/L (8-16); Aspartate Amino Transferase 38 U/L (17-59); Bilirubin,Total 0.7 mg/dL (0.2-1.3); Blood Urea Nitrogen 11 mg/dL (9-20); Calcium 8.4 mg/dL (8.4-10.2); Carbon Dioxide 29 mmol/L (22-30); Chloride 104 mmol/L (98-107); Estimated CRCL calculation 111 ml/min; Estimated Glomerular Filt Rate > 60; Glucose 118 mg/dL (65-110); Phosphorus 2.7 mg/dL (2.5-4.5); Sodium 139 mmol/L (137-145)
[2021-12-24] MEDS: LACTATED RINGERS 1,000 ML 75 ML IV CONT (04:22)
[2021-12-24] MEDS: HEPARIN SOD/D5W 100 UNITS/ML 25,000 UNITS/250 ML BAG 19 UNITS IV CONT (06:22)
[2021-12-24] MEDS: dilTIAZem 100 MG/100 ML 100 MG/100 ML BAG 10 MG IV CONT ×2 (06:22→16:58)
[2021-12-24 07:27] LABS: Glucose Point of Care 133 mg/dl (65-105)
--- NOTE | 2021-12-24 08:04 | PM.PNCARD ---
Progress Note: A&P Assessment and Plan (1) Acute CVA (cerebrovascular accident): Code(s): I63.9 - Cerebral infarction, unspecified Status: Acute Assessment and Plan: Probably from cardioembolization. Neurology consulted. (2) Atrial fibrillation with rapid ventricular response: Code(s): I48.91 - Unspecified atrial fibrillation Status: Acute Assessment and Plan: [id number] 3. Started on heparin drip in ER to prevent further cardioembolization, and continue if OK from neurology standpoint. Rate controlled with Diltiazem 10 mg/hr. (3) Elevated troponin: Code(s): R77.8 - Other specified abnormalities of plasma proteins Status: Acute Assessment and Plan: Doubt ACS as he does not have signs/symptoms of it. Troponin peaked at 4.5. Probably due to acute stroke, hypertensive urgency, rapid atrial fibrillation. Echo shows EF 60-65%, mod LVH, diastolic dysfunction (E/e' 14), mod LAE, mild MR. (4) Hypertension: Code(s): I10 - Essential (primary) hypertension Status: Acute Assessment and Plan: High. Permissive hypertension due to stroke. Off nicardipine drip. Would restart Losartan 100 mg daily. Resume Pravastatin 40 mg daily and Zetia 10 mg daily. (5) NSVT (nonsustained ventricular tachycardia): Code(s): I47.2 - Ventricular tachycardia Status: Acute Assessment and Plan: Had 20 beat run last night 12/24/21. Low potassium. Replete to keep potassium>4.0. Subjective Date/time seen: 12/24/21 08:04 Denies chest pain or sob. Oriented x1 only. Exam Const: General: cooperative, comfortable and alert Orientation/consciousness: oriented to person, No oriented to place and No oriented to time Resp: Auscultation: clear to auscultation bilaterally, no crackles, no rales, no rhonchi and no wheezes Cardio: Jugular venous distension: no JVD Rate: tachycardic Rhythm: abnormal rhythm Heart sounds: no murmurs Peripheral pulses: dorsalis pedis present GI: GI Palp: No abdominal tenderness and Yes Soft to palpation Neuro: General: oriented to person, No oriented to place and No oriented to time Extrem: Right lower extremity: no edema Left lower extremity: no edema Objective Data Vital Signs Vital Signs: Vital Signs - 24 hr 12/23/21 10:00 12/23/21 10:43 12/23/21 12:00 Temperature 100.0 F H 100.0 F H Pulse Rate 93 99 90 Respiratory Rate 18 18 Blood Pressure 161/122 H 197/141 H Pulse Oximetry 94 93 12/23/21 14:00 12/23/21 16:00 12/23/21 16:22 Temperature 100.1 F H 100.4 F H 100.4 F H Pulse Rate 88 95 Respiratory Rate 16 22 H Blood Pressure 164/101 H 160/101 H Pulse Oximetry 94 93 12/23/21 16:27 12/23/21 16:52 12/23/21 18:00 Temperature 100.1 F H 100.2 F H Pulse Rate 87 Respiratory Rate 16 Blood Pressure 159/99 H 156/106 H Pulse Oximetry 94 12/23/21 20:00 12/23/21 20:14 12/23/21 20:33 Temperature 100.4 F H Pulse Rate 85 84 Respiratory Rate 16 Blood Pressure 158/93 H 158/93 H Pulse Oximetry 95 95 12/23/21 21:59 12/23/21 23:52 12/24/21 00:00 Temperature 99.7 F H Pulse Rate 71 80 64 Respiratory Rate 14 Blood Pressure 171/117 H Pulse Oximetry 95 12/24/21 02:00 12/24/21 04:00 12/24/21 06:00 Temperature 99.0 F Pulse Rate 63 65 63 Respiratory Rate 12 Blood Pressure 176/117 H Pulse Oximetry 97 12/24/21 06:22 Temperature Pulse Rate 85 Respiratory Rate Blood Pressure Pulse Oximetry Intake/Output Intake/Output: Intake & Output 12/21/21 12/22/21 12/23/21 12/24/21 23:59 23:59 23:59 23:59 Intake Total 3100 2210 845 Output Total 550 1250 1000 Balance 2550 960 -155 Meds/Results Medications: Active Medications Generic Name Dose Route Start Last Admin Trade Name Freq PRN Reason Stop Dose Admin Dextrose 12.5 gm 12/22/21 19:06 Dextrose 50% 25 Gm/50 Ml Syringe IV PUSH PRN PRN Hypoglycemia Protocol Glucagon 1 mg 12/22/21 19:06 G
[2021-12-24] MEDS: PANTOPRAZOLE SODIUM IV 40 MG VIAL IV PUSH (11:29)
--- NOTE | 2021-12-24 11:29 | PM.IMPN ---
Progress Note: A&P Additional Plan (1) Acute CVA (cerebrovascular accident): Code(s): I63.9 - Cerebral infarction, unspecified Status: Acute Assessment and Plan: Last well known more than 12 hours prior to arrival. Not a tPA candidate. CT head with regions of cytotoxic edema consistent with relatively recent infarcts, the largest involving the left temporoparietal occipital region with small region in the posterior right frontal lobe Multiple areas of involvement of the brain suggestive of cardioembolic origin of stroke He does have underlying atrial fibrillation CTA head and neck done showed acute infarct in the right frontotemporal parietal region and left temporoparietal occipital region. With 0% stenosis in the proximal internal carotid arteries and no aneurysm or significant intracranial arterial stenosis Neurology has been consulted. S/P permissive hypertension with goal blood pressure of 160-180 BP is still above goal i.e. 190/124 mmhg, restart home losaratan 100mg daily, start PO hydralazine 25mg QID, IV hydralazine PRN for SBP>160, DBP> 110 Neurology okay with heparin drip anticoagulation, which was discussed with Neurology and Cardiology at the time of admission.. Risk of hemorrhagic conversion is high PT OT to evaluate and treat Echo with EF 60-65% mild MR (2) Elevated troponin: Code(s): R77.8 - Other specified abnormalities of plasma proteins Status: Acute Assessment and Plan: Patient's initial troponin was 4.14 and 2nd troponin is 4.5. Cardiology been consulted. Does not suspect ACS bleed troponin leak. Probably due to acute stroke her hypertension and/or rapid atrial fibrillation. Echo has been ordered pending resolved (3) Atrial fibrillation with rapid ventricular response: Code(s): I48.91 - Unspecified atrial fibrillation Status: Acute Assessment and Plan: Patient was seen last year at [facility] for atrial fibrillation with rapid ventricular response. Patient was cardioverted and was sent home on Eliquis as well as Cardizem. It does not appear the patient was taking those medications. Unsure if patient has follow-up with Cardiology since that point in time since no one helps to care for the patient. Patient remains on Cardizem drip and his ventricular rate been controlled. Remains on anticoagulation with heparin drip for his atrial fibrillation as well as cardioembolic stroke (4) Diabetes: Code(s): E11.9 - Type 2 diabetes mellitus without complications Status: Acute Assessment and Plan: The patient does take metformin at home. Which is placed on hold Monitor Accu-Cheks and continue sliding scale insulin (5) Hypertension: Code(s): I10 - Essential (primary) hypertension Status: Acute Assessment and Plan: Blood pressure is still above goal i.e. 190/124 mmhg, restart home losaratan 100mg daily, start PO hydralazine 25mg QID, IV hydralazine PRN for SBP>160, DBP> 110 He is on Cardizem drip for rate control. Goal blood pressure systolic 160-180 mm Hg Continue to monitor (6) Leukocytosis: Code(s): D72.829 - Elevated white blood cell count, unspecified Status: Acute Assessment and Plan: Unclear etiology no source of infection evident, UA is negative, chest x-ray with haziness in right hemithorax could represent small pleural effusion atelectasis or pneumonia Mild lactic acidosis on admission On empiric cefepime. Continue cefepime for now Leukocytosis improved a bit today He is also febrile Follow cultures (7) Acute hypokalemia: -K of 3.0 -managed with IV KCl 40meq DVT prophylaxis heparin infusion Stress ulcer prophylaxis Protonix Code status full code Subjective Date/time seen: 12/24/21 11:29 Patient seen sitting up in bed, was on the phone and seemed agitated. Exam Const: General: healthy appearing and no acute distress Resp: Effort & Inspection: normal respiratory effort and ab
[2021-12-24] MEDS: HEPARIN SODIUM 5,000 UNITS/ML VIAL 4000 UNITS IV PUSH (12:31)
--- NOTE | 2021-12-24 12:43 | WPDNEUROPN ---
Progress Note: A&P Additional Plan therapy will be continued as such in addition he will benefit from the physical therapy Time Spent With Patient Time with patient: less than 15 minutes Subjective Date/time seen: 12/24/21 12:43 status post acute infarcts in the right frontoparietal region and left temporal parietal occipital region as well with negative CTA but history of atrial fibrillation with rapid ventricular response, elevated troponin remains awake alert follow the instruction but unable to carry on a conversation his speech is dysphasic remains very pleasant today, sitting in chair following the instructions Objective Data Vital Signs Vital Signs: Vital Signs - 24 hr 12/23/21 14:00 12/23/21 16:00 12/23/21 16:22 Temperature 37.8 C H 38.0 C H 38.0 C H Pulse Rate 88 95 Respiratory Rate 16 22 H Blood Pressure 164/101 H 160/101 H Pulse Oximetry 94 93 12/23/21 16:27 12/23/21 16:52 12/23/21 18:00 Temperature 37.8 C H 37.9 C H Pulse Rate 87 Respiratory Rate 16 Blood Pressure 159/99 H 156/106 H Pulse Oximetry 94 12/23/21 20:00 12/23/21 20:14 12/23/21 20:33 Temperature 38.0 C H Pulse Rate 85 84 Respiratory Rate 16 Blood Pressure 158/93 H 158/93 H Pulse Oximetry 95 95 12/23/21 21:59 12/23/21 23:52 12/24/21 00:00 Temperature 37.6 C H Pulse Rate 71 80 64 Respiratory Rate 14 Blood Pressure 171/117 H Pulse Oximetry 95 12/24/21 02:00 12/24/21 04:00 12/24/21 06:00 Temperature 37.2 C Pulse Rate 63 65 63 Respiratory Rate 12 Blood Pressure 176/117 H Pulse Oximetry 97 12/24/21 06:22 12/24/21 08:00 12/24/21 12:00 Temperature 37.1 C 37.1 C Pulse Rate 85 75 80 Respiratory Rate 18 19 Blood Pressure 175/117 H 185/116 H Pulse Oximetry 97 96 Intake/Output Intake/Output: Intake & Output 12/21/21 12/22/21 12/23/21 12/24/21 23:59 23:59 23:59 23:59 Intake Total 3100 2210 945 Output Total 550 1250 1000 Balance 2550 960 -55 Meds/Results Medications: Active Medications Generic Name Dose Route Start Last Admin Trade Name Freq PRN Reason Stop Dose Admin Dextrose 12.5 gm 12/22/21 19:06 Dextrose 50% 25 Gm/50 Ml Syringe IV PUSH PRN PRN Hypoglycemia Protocol Glucagon 1 mg 12/22/21 19:06 Glucagon For Inj 1 Mg Vial IM PRN PRN Hypoglycemia Protocol Glucose 15 gm 12/22/21 19:06 Glucose Oral Gel 15 Gm Of Glucse In 37.5 Gm Tube PO PRN PRN Hypoglycemia Protocol Heparin Sodium (Porcine) 8,000 units 12/22/21 13:44 12/22/21 21:24 Heparin Sodium 5,000 Units/Ml Vial IV PUSH 8,000 units PRN PRN Administration aPTT less than 55 seconds Heparin Sodium (Porcine) 4,000 units 12/22/21 13:44 12/24/21 12:31 Heparin Sodium 5,000 Units/Ml Vial IV PUSH 4,000 units PRN PRN Administration aPTT 55 - 70 seconds Heparin Sodium/Dextrose 25,000 units in 250 mls @ 21 mls/hr 12/22/21 14:00 12/24/21 12:30 Heparin Sodium/D5w 100 Units/Ml IV CONT 2,100 units/hr .[id number] GAGANDEEP 21 mls/hr Titration Protocol 2,100 UNITS/HR Cefepime HCl 2 gm in 50 mls @ 100 mls/hr 12/22/21 22:00 12/24/21 06:02 Maxipime 2 Gm/D5w 50 Ml IVPB Infused Q8H GAGANDEEP Infusion Dextrose 1,000 mls @ 100 mls/hr 12/22/21 19:06 Dextrose 5% 1,000 Ml IVPB PRN PRN Hypoglycemia Protocol Diltiazem HCl 100 mg in 100 mls @ 10 mls/hr 12/23/21 00:10 12/24/21 06:22 Cardizem 100 Mg/100 Ml IV CONT 10 mg/hr .Q10H GAGANDEEP 10 mls/hr Administration Protocol 10 MG/HR Lactated Ringer's 1,000 mls @ 75 mls/hr 12/23/21 08:05 12/24/21 04:22 Lr - Lactated Ringers Iv IV CONT 75 mls/hr .[id number] GAGANDEEP Administration Potassium Chloride 40 meq/ 520 mls @ 130 mls/hr 12/24/21 11:30 Sodium Chloride IVPB 12/24/21 15:29 ONCE ONE Insulin Aspart 2 - 5 units 12/22/21 20:00 12/24/21 08:45 Insulin Aspart (*Bkc) 100 Units/Ml SUB-Q Not Given [facility]
--- NOTE | 2021-12-24 12:44 | PCPTNOTE ---
The patient treatment was not able to be completed on 12/24/21 due to RN reporting consistent high blood pressure reading. Will continue per plan once patient is at an appropriate with vitals.
[2021-12-24] MEDS: POTASSIUM CHLORIDE INJ 40 MEQ in SODIUM CHLORIDE 0.9% IV 500 ML 130 MEQ IVPB (12:46)
[2021-12-24 14:21] LABS: Glucose Point of Care 155 mg/dl (65-105)
[2021-12-24 14:31] LABS: Glucose Point of Care 161 mg/dl (65-105)
[2021-12-24] MEDS: hydrALAZINE HCL 20 MG/ML VIAL 10 MG IV PUSH ×2 (15:01→23:07)
[2021-12-24] MEDS: hydrALAZINE HCL 25 MG TABLET PO ×2 (16:59→20:32)
[2021-12-24] MEDS: HEPARIN SOD/D5W 100 UNITS/ML 25,000 UNITS/250 ML BAG 21 UNITS IV CONT (18:45)
[2021-12-24 18:54] LABS: Glucose Point of Care 137 mg/dl (65-105)
[2021-12-24 19:17] LABS: Partial Thromboplastin Time 74.3 SECONDS (22.3-36.8)
[2021-12-25] VITALS (17 sets, daily range): BP systolic 127–185; BP diastolic 86–118; PULSE 75–97; RESP 16–24; TEMP 36.8–37.6; O2SAT 95–98
[2021-12-25 00:24] LABS: Glucose Point of Care 127 mg/dl (65-105)
[2021-12-25 00:37] LABS: Partial Thromboplastin Time 123.6 SECONDS (22.3-36.8)
[2021-12-25] MEDS: dilTIAZem 100 MG/100 ML 100 MG/100 ML BAG 10 MG IV CONT ×3 (03:56→23:41)
[2021-12-25 05:35] LABS: Glucose Point of Care 121 mg/dl (65-105)
[2021-12-25] MEDS: HEPARIN SOD/D5W 100 UNITS/ML 25,000 UNITS/250 ML BAG 19 UNITS IV CONT ×2 (07:23→18:15)
[2021-12-25 07:38] LABS: Alanine Aminotransferase 19 U/L (4-50); Alkaline Phosphatase 84 U/L (38-126); Anion Gap 6 mmol/L (8-16); Aspartate Amino Transferase 34 U/L (17-59); Bilirubin,Total 0.7 mg/dL (0.2-1.3); Blood Urea Nitrogen 9 mg/dL (9-20); Calcium 8.8 mg/dL (8.4-10.2); Carbon Dioxide 27 mmol/L (22-30); Chloride 104 mmol/L (98-107); Estimated CRCL calculation 121 ml/min; Estimated Glomerular Filt Rate > 60; Glucose 119 mg/dL (65-110); Potassium 3.4 mmol/L (3.4-5.0); Sodium 137 mmol/L (137-145)
[2021-12-25] MEDS: hydrALAZINE HCL 25 MG TABLET PO (08:45)
[2021-12-25] MEDS: PANTOPRAZOLE SODIUM IV 40 MG VIAL IV PUSH (08:46)
[2021-12-25 08:55] LABS: Partial Thromboplastin Time 67.7 SECONDS (22.3-36.8)
[2021-12-25] MEDS: LOSARTAN POTASSIUM 100 MG TABLET PO (09:15)
[2021-12-25] MEDS: HEPARIN SODIUM 5,000 UNITS/ML VIAL 4000 UNITS IV PUSH (09:36)
--- NOTE | 2021-12-25 09:37 | PM.IMPN ---
Progress Note: A&P Additional Plan 1) Acute CVA (cerebrovascular accident): Code(s): I63.9 - Cerebral infarction, unspecified Status: Acute Assessment and Plan: Last well known more than 12 hours prior to arrival. Not a tPA candidate. CT head with regions of cytotoxic edema consistent with relatively recent infarcts, the largest involving the left temporoparietal occipital region with small region in the posterior right frontal lobe Multiple areas of involvement of the brain suggestive of cardioembolic origin of stroke He does have underlying atrial fibrillation CTA head and neck done showed acute infarct in the right frontotemporal parietal region and left temporoparietal occipital region. With 0% stenosis in the proximal internal carotid arteries and no aneurysm or significant intracranial arterial stenosis Neurology has been consulted. S/P permissive hypertension with goal blood pressure of 160-180 BP is still above goal i.e. 171/111mmhg, continue home losaratan 100mg daily, increase PO hydralazine to 50mg QID, IV hydralazine PRN for SBP>160, DBP> 110 Neurology okay with heparin drip anticoagulation, which was discussed with Neurology and Cardiology at the time of admission.. Risk of hemorrhagic conversion is high PT OT to evaluate and treat Echo with EF 60-65% mild MR (2) Elevated troponin: Code(s): R77.8 - Other specified abnormalities of plasma proteins Status: Acute Assessment and Plan: Patient's initial troponin was 4.14 and 2nd troponin is 4.5. Cardiology been consulted. Does not suspect ACS bleed troponin leak. Probably due to acute stroke her hypertension and/or rapid atrial fibrillation. Echo has been ordered pending resolved (3) Atrial fibrillation with rapid ventricular response: Code(s): I48.91 - Unspecified atrial fibrillation Status: Acute Assessment and Plan: Patient was seen last year at [facility] [place] for atrial fibrillation with rapid ventricular response. Patient was cardioverted and was sent home on Eliquis as well as Cardizem. It does not appear the patient was taking those medications. Unsure if patient has follow-up with Cardiology since that point in time since no one helps to care for the patient. Patient remains on Cardizem drip and his ventricular rate been controlled. Remains on anticoagulation with heparin drip for his atrial fibrillation as well as cardioembolic stroke, being rate controlled with diltiazem drip 10mg/hr per policy intern. (4) Diabetes: Code(s): E11.9 - Type 2 diabetes mellitus without complications Status: Acute Assessment and Plan: The patient takes metformin at home. Which is placed on hold Monitor Accu-Cheks ACHS and continue sliding scale insulin (5) Hypertension: Code(s): I10 - Essential (primary) hypertension Status: Acute Assessment and Plan: Blood pressure is still above goal i.e. 190/124 mmhg, restart home losaratan 100mg daily, increase PO hydralazine to 50mg QID, IV hydralazine PRN for SBP>160, DBP> 110 He is on Cardizem drip for rate control. Goal blood pressure systolic 160-180 mm Hg Continue to monitor (6) Leukocytosis: Code(s): D72.829 - Elevated white blood cell count, unspecified Status: Acute Assessment and Plan: Unclear etiology no source of infection evident, UA is negative, chest x-ray with haziness in right hemithorax could represent small pleural effusion atelectasis or pneumonia Mild lactic acidosis on admission On empiric cefepime. Continue cefepime for now Leukocytosis improved a bit today He is also febrile Follow cultures (7) Acute hypokalemia: -K of 3.4 -PO KCl 40meq daily DVT prophylaxis heparin infusion Stress ulcer prophylaxis Protonix Code status full code Time Spent With Patient Time with patient: 15 - 25 minutes Subjective Date/time seen: 12/25/21 09:37 Patient seen lying comfortably in bed, in good spirits, he denies smith
--- NOTE | 2021-12-25 09:52 | PM.PNCARD ---
Progress Note: A&P Assessment and Plan (1) Acute CVA (cerebrovascular accident): Code(s): I63.9 - Cerebral infarction, unspecified Status: Acute Assessment and Plan: Probably from cardioembolization. Neurology consulted. (2) Atrial fibrillation with rapid ventricular response: Code(s): I48.91 - Unspecified atrial fibrillation Status: Acute Assessment and Plan: [id number] 3. Started on heparin drip in ER to prevent further cardioembolization, and continue if OK from neurology standpoint. Rate controlled with Diltiazem 10 mg/hr. (3) Elevated troponin: Code(s): R77.8 - Other specified abnormalities of plasma proteins Status: Acute Assessment and Plan: Doubt ACS as he does not have signs/symptoms of it. Troponin peaked at 4.5. Probably due to acute stroke, hypertensive urgency, rapid atrial fibrillation. Echo shows EF 60-65%, mod LVH, diastolic dysfunction (E/e' 14), mod LAE, mild MR. (4) Hypertension: Code(s): I10 - Essential (primary) hypertension Status: Acute Assessment and Plan: High. Permissive hypertension due to stroke. Off nicardipine drip. On Losartan and Hydralazine. (5) NSVT (nonsustained ventricular tachycardia): Code(s): I47.2 - Ventricular tachycardia Status: Acute Assessment and Plan: Had 20 beat run last night 12/24/21. Low potassium. Replete to keep potassium>4.0. Subjective Date/time seen: 12/25/21 09:52 Denies chest pain or sob. Exam Const: General: cooperative, comfortable and alert Orientation/consciousness: oriented to person, No oriented to place and No oriented to time Resp: Auscultation: clear to auscultation bilaterally, no crackles, no rales, no rhonchi and no wheezes Cardio: Jugular venous distension: no JVD Rate: regular rate Rhythm: abnormal rhythm Heart sounds: no murmurs Peripheral pulses: dorsalis pedis present GI: GI Palp: No abdominal tenderness and Yes Soft to palpation Neuro: General: oriented to person, No oriented to place and No oriented to time Extrem: Right lower extremity: no edema Left lower extremity: no edema Objective Data Vital Signs Vital Signs: Vital Signs - 24 hr 12/24/21 10:00 12/24/21 12:00 12/24/21 14:00 Temperature 98.8 F Pulse Rate 89 71 104 H Respiratory Rate 19 Blood Pressure 185/116 H Pulse Oximetry 96 12/24/21 15:02 12/24/21 16:00 12/24/21 16:58 Temperature 99.3 F Pulse Rate 90 97 Respiratory Rate 19 Blood Pressure 201/135 H 195/93 H Pulse Oximetry 98 12/24/21 18:00 12/24/21 20:00 12/24/21 20:57 Temperature 99.5 F Pulse Rate 89 82 Respiratory Rate 21 H Blood Pressure 130/77 Pulse Oximetry 98 98 12/24/21 22:00 12/25/21 00:00 12/25/21 02:00 Temperature 98.8 F Pulse Rate 78 93 84 Respiratory Rate 19 Blood Pressure 185/113 H Pulse Oximetry 98 12/25/21 03:56 12/25/21 04:00 12/25/21 06:00 Temperature 98.2 F Pulse Rate 86 87 82 Respiratory Rate 17 Blood Pressure 127/102 H Pulse Oximetry 12/25/21 08:00 12/25/21 09:46 Temperature 98.9 F Pulse Rate 89 Respiratory Rate 22 H Blood Pressure 171/111 H 182/118 H Pulse Oximetry 98 Intake/Output Intake/Output: Intake & Output 12/22/21 12/23/21 12/24/21 12/25/21 23:59 23:59 23:59 23:59 Intake Total 3100 2210 2075 586 Output Total 550 1250 2350 3025 Balance 6288 632 -240 -4483 Meds/Results Medications: Active Medications Generic Name Dose Route Start Last Admin Trade Name Freq PRN Reason Stop Dose Admin Dextrose 12.5 gm 12/22/21 19:06 Dextrose 50% 25 Gm/50 Ml Syringe IV PUSH PRN PRN Hypoglycemia Protocol Glucagon 1 mg 12/22/21 19:06 Glucagon For Inj 1 Mg Vial IM PRN PRN Hypoglycemia Protocol Glucose 15 gm 12/22/21 19:06 Glucose Oral Gel 15 Gm Of Glucse In 37.5 Gm Tube PO PRN PRN Hypoglycemia Protocol Heparin Sodium (Porcine) 8,000 units 12/22/21 1
[2021-12-25] MEDS: POTASSIUM CHLORIDE 20 MEQ PACKET (FOR LIQUID) 40 MEQ PO (11:04)
[2021-12-25] MEDS: hydrALAZINE HCL 20 MG/ML VIAL 10 MG IV PUSH ×2 (11:04→23:40)
[2021-12-25 11:29] LABS: Glucose Point of Care 111 mg/dl (65-105)
[2021-12-25] MEDS: hydrALAZINE HCL 50 MG TABLET PO ×3 (12:08→20:40)
[2021-12-25 17:02] LABS: Partial Thromboplastin Time 107.1 SECONDS (22.3-36.8)
[2021-12-25 17:05] LABS: Glucose Point of Care 122 mg/dl (65-105)
[2021-12-25 23:43] LABS: Glucose Point of Care 123 mg/dl (65-105)
[2021-12-26] VITALS (14 sets, daily range): BP systolic 128–183; BP diastolic 83–123; PULSE 70–122; RESP 14–22; TEMP 36.9–37.7; O2SAT 96–99
[2021-12-26] MEDS: HEPARIN SODIUM 5,000 UNITS/ML VIAL 4000 UNITS IV PUSH (01:00)
[2021-12-26 06:44] LABS: Partial Thromboplastin Time 167.9 SECONDS (22.3-36.8)
[2021-12-26 07:42] LABS: Anion Gap 6 mmol/L (8-16); Blood Urea Nitrogen 13 mg/dL (9-20); Calcium 9.1 mg/dL (8.4-10.2); Carbon Dioxide 28 mmol/L (22-30); Chloride 102 mmol/L (98-107); Estimated CRCL calculation 110 ml/min; Estimated Glomerular Filt Rate > 60; Glucose 125 mg/dL (65-110); Potassium 3.4 mmol/L (3.4-5.0); Sodium 136 mmol/L (137-145)
--- NOTE | 2021-12-26 07:57 | PM.PNCARD ---
Progress Note: A&P Assessment and Plan (1) Acute CVA (cerebrovascular accident): Code(s): I63.9 - Cerebral infarction, unspecified Status: Acute Assessment and Plan: Probably from cardioembolization. Neurology consulted. (2) Atrial fibrillation with rapid ventricular response: Code(s): I48.91 - Unspecified atrial fibrillation Status: Acute Assessment and Plan: [id number] 3. Started on heparin drip in ER to prevent further cardioembolization, and continue if OK from neurology standpoint. Rate controlled with Diltiazem 10 mg/hr. Stop Diltiazem drip. Start Diltiazem 60 mg BID. Monitor HR. May need higher dose or Metoprolol added for continued rate control. (3) Elevated troponin: Code(s): R77.8 - Other specified abnormalities of plasma proteins Status: Acute Assessment and Plan: Doubt ACS as he does not have signs/symptoms of it. Troponin peaked at 4.5. Probably due to acute stroke, hypertensive urgency, rapid atrial fibrillation. Echo shows EF 60-65%, mod LVH, diastolic dysfunction (E/e' 14), mod LAE, mild MR. (4) Hypertension: Code(s): I10 - Essential (primary) hypertension Status: Acute Assessment and Plan: Stable. Off nicardipine drip. On Losartan and Hydralazine, and Diltiazem. (5) NSVT (nonsustained ventricular tachycardia): Code(s): I47.2 - Ventricular tachycardia Status: Acute Assessment and Plan: Had 20 beat run last night 12/24/21. Low potassium. Replete to keep potassium>4.0. Subjective Date/time seen: 12/26/21 07:57 Denies chest pain or sob. Oriented x1. Exam Const: General: cooperative, comfortable and alert Orientation/consciousness: oriented to person, No oriented to place and No oriented to time Resp: Auscultation: clear to auscultation bilaterally, no crackles, no rales, no rhonchi and no wheezes Cardio: Jugular venous distension: no JVD Rate: regular rate Rhythm: abnormal rhythm Heart sounds: no murmurs Peripheral pulses: dorsalis pedis present GI: GI Palp: No abdominal tenderness and Yes Soft to palpation Neuro: General: oriented to person, No oriented to place and No oriented to time Extrem: Right lower extremity: no edema Left lower extremity: no edema Objective Data Vital Signs Vital Signs: Vital Signs - 24 hr 12/25/21 08:00 12/25/21 09:46 12/25/21 10:00 Temperature 98.9 F Pulse Rate 86 88 Respiratory Rate 22 H Blood Pressure 171/111 H 182/118 H Pulse Oximetry 98 12/25/21 11:05 12/25/21 12:00 12/25/21 13:39 Temperature 99.0 F Pulse Rate 91 89 Respiratory Rate 16 Blood Pressure 184/113 H 150/95 H Pulse Oximetry 97 12/25/21 14:00 12/25/21 16:00 12/25/21 18:00 Temperature 99.2 F Pulse Rate 94 82 95 Respiratory Rate 24 H Blood Pressure 131/86 Pulse Oximetry 97 12/25/21 20:00 12/25/21 22:00 12/25/21 23:41 Temperature 99.6 F Pulse Rate 75 90 97 Respiratory Rate 20 Blood Pressure 181/99 H Pulse Oximetry 95 12/26/21 00:00 12/26/21 02:00 12/26/21 04:00 Temperature 99.4 F 98.5 F Pulse Rate 84 83 71 Respiratory Rate 19 14 Blood Pressure 169/102 H 128/83 Pulse Oximetry 97 97 12/26/21 06:00 Temperature Pulse Rate 70 Respiratory Rate Blood Pressure Pulse Oximetry Intake/Output Intake/Output: Intake & Output 12/23/21 12/24/21 12/25/21 12/26/21 23:59 23:59 23:59 23:59 Intake Total 2210 2075 2392 50 Output Total 1250 2350 5083 1650 Balance 845 -988 -2582 -1518 Meds/Results Medications: Active Medications Generic Name Dose Route Start Last Admin Trade Name Freq PRN Reason Stop Dose Admin Dextrose 12.5 gm 12/22/21 19:06 Dextrose 50% 25 Gm/50 Ml Syringe IV PUSH PRN PRN Hypoglycemia Protocol Diltiazem HCl 60 mg 12/26/21 09:00 Diltiazem Hcl 12 Hr 60 Mg Cap.Er.12h PO Q12HR GAGANDEEP Glucagon 1 mg 12/22/21 19:06 Glucagon For Inj 1 Mg Vial IM PRN PRN Hypoglycemia
[2021-12-26] MEDS: HEPARIN SOD/D5W 100 UNITS/ML 25,000 UNITS/250 ML BAG 18 UNITS IV CONT (08:11)
[2021-12-26] MEDS: hydrALAZINE HCL 50 MG TABLET PO ×4 (08:41→20:57)
[2021-12-26] MEDS: LOSARTAN POTASSIUM 100 MG TABLET PO (08:41)
[2021-12-26] MEDS: PANTOPRAZOLE SODIUM IV 40 MG VIAL IV PUSH (08:42)
[2021-12-26] MEDS: POTASSIUM CHLORIDE 20 MEQ PACKET (FOR LIQUID) 40 MEQ PO (08:42)
--- NOTE | 2021-12-26 10:22 | PM.IMPN ---
Progress Note: A&P Additional Plan 1) Acute CVA (cerebrovascular accident): Code(s): I63.9 - Cerebral infarction, unspecified Status: Acute Assessment and Plan: Last well known more than 12 hours prior to arrival. Not a tPA candidate. CT head with regions of cytotoxic edema consistent with relatively recent infarcts, the largest involving the left temporoparietal occipital region with small region in the posterior right frontal lobe Multiple areas of involvement of the brain suggestive of cardioembolic origin of stroke He does have underlying atrial fibrillation CTA head and neck done showed acute infarct in the right frontotemporal parietal region and left temporoparietal occipital region. With 0% stenosis in the proximal internal carotid arteries and no aneurysm or significant intracranial arterial stenosis Neurology has been consulted. S/P permissive hypertension with goal blood pressure of 160-180 BP is still above goal i.e. 171/111mmhg, continue home losaratan 100mg daily, increase PO hydralazine to 50mg QID, IV hydralazine PRN for SBP>160, DBP> 110 Neurology okay with heparin drip anticoagulation, which was discussed with Neurology and Cardiology at the time of admission.. Risk of hemorrhagic conversion is high. Now has heparin drip discontinued today 12/26/21 and has been switched to PO Eliquis 5mg BID. PT OT to evaluate and treat Echo with EF 60-65% mild MR (2) Elevated troponin: Code(s): R77.8 - Other specified abnormalities of plasma proteins Status: Acute Assessment and Plan: Patient's initial troponin was 4.14 and 2nd troponin is 4.5. Cardiology been consulted. Does not suspect ACS bleed troponin leak. Probably due to acute stroke her hypertension and/or rapid atrial fibrillation. Echo has been ordered pending resolved (3) Atrial fibrillation with rapid ventricular response: Code(s): I48.91 - Unspecified atrial fibrillation Status: Acute Assessment and Plan: Patient was seen last year at [facility] for atrial fibrillation with rapid ventricular response. Patient was cardioverted and was sent home on Eliquis as well as Cardizem. It does not appear the patient was taking those medications. Unsure if patient has follow-up with Cardiology since that point in time since no one helps to care for the patient. Patient remains on Cardizem drip and his ventricular rate been controlled. On anticoagulation with heparin drip for his atrial fibrillation as well as cardioembolic stroke, being rate controlled with diltiazem drip 10mg/hr per corn sheller operator. Diltazem drip stopped by the corn sheller operator on 12/26/2021 and the patient was started on PO diltiazem 60mg [id number]. Now has heparin drip discontinued today 12/26/21 and has been switched to PO Eliquis 5mg BID. (4) Diabetes: Code(s): E11.9 - Type 2 diabetes mellitus without complications Status: Acute Assessment and Plan: The patient takes metformin at home. Which is placed on hold Monitor Accu-Cheks ACHS and continue sliding scale insulin (5) Hypertension: Code(s): I10 - Essential (primary) hypertension Status: Acute Assessment and Plan: Continue losartan 100mg daily and PO hydralazine to 50mg QID. Continue IV hydralazine PRN for SBP>160, DBP> 110 Now s/p Cardizem drip for rate control. Started on PO diltiazem 60mg [id number] by the corn sheller operator. Goal blood pressure systolic 160-180 mm Hg Continue to monitor (6) Leukocytosis: Code(s): D72.829 - Elevated white blood cell count, unspecified Status: Acute Assessment and Plan: Unclear etiology no source of infection evident, UA is negative, chest x-ray with haziness in right hemithorax could represent small pleural effusion atelectasis or pneumonia Mild lactic acidosis on admission On empiric cefepime. Continue cefepime for now Leukocytosis improved. He is also febrile Follow cultures (7) Acute hypokalemia: -K of 3.
[2021-12-26 11:46] LABS: Glucose Point of Care 126 mg/dl (65-105)
[2021-12-26] MEDS: APIXABAN 5 MG TABLET PO ×2 (12:53→20:57)
[2021-12-26 16:44] LABS: Glucose Point of Care 104 mg/dl (65-105)
[2021-12-26 21:14] LABS: Glucose Point of Care 138 mg/dl (65-105)
[2021-12-27] VITALS (13 sets, daily range): BP systolic 114–179; BP diastolic 54–94; PULSE 82–115; RESP 15–19; TEMP 36.6–37.6; O2SAT 97–100
[2021-12-27] MEDS: hydrALAZINE HCL 20 MG/ML VIAL 10 MG IV PUSH (06:05)
--- NOTE | 2021-12-27 08:22 | PM.IMPN ---
Progress Note: A&P Additional Plan 1) Acute CVA (cerebrovascular accident): Code(s): I63.9 - Cerebral infarction, unspecified Status: Acute Assessment and Plan: Last well known more than 12 hours prior to arrival. Not a tPA candidate. CT head with regions of cytotoxic edema consistent with relatively recent infarcts, the largest involving the left temporoparietal occipital region with small region in the posterior right frontal lobe Multiple areas of involvement of the brain suggestive of cardioembolic origin of stroke He does have underlying atrial fibrillation CTA head and neck done showed acute infarct in the right frontotemporal parietal region and left temporoparietal occipital region. With 0% stenosis in the proximal internal carotid arteries and no aneurysm or significant intracranial arterial stenosis Neurology has been consulted. S/P permissive hypertension with goal blood pressure of 160-180 continue home losartan 100mg daily, PO hydralazine 50mg QID, continue IV hydralazine PRN for SBP>160, DBP> 110 Neurology okay with heparin drip anticoagulation, which was discussed with Neurology and Cardiology at the time of admission.. Risk of hemorrhagic conversion is high. Was on heparin drip that was discontinued on 12/26/21 and has been switched to PO Eliquis 5mg BID. PT OT to evaluate and treat Echo with EF 60-65% mild MR (2) Elevated troponin: Code(s): R77.8 - Other specified abnormalities of plasma proteins Status: Acute Assessment and Plan: Patient's initial troponin was 4.14 and 2nd troponin is 4.5. Cardiology been consulted. Does not suspect ACS bleed troponin leak. Probably due to acute stroke her hypertension and/or rapid atrial fibrillation. Echo has been ordered pending resolved (3) Atrial fibrillation with rapid ventricular response: Code(s): I48.91 - Unspecified atrial fibrillation Status: Acute Assessment and Plan: Patient was seen last year at [facility] for atrial fibrillation with rapid ventricular response. Patient was cardioverted and was sent home on Eliquis as well as Cardizem. It does not appear the patient was taking those medications. Unsure if patient has follow-up with Cardiology since that point in time since no one helps to care for the patient. Patient remains on Cardizem drip and his ventricular rate been controlled. On anticoagulation with heparin drip for his atrial fibrillation as well as cardioembolic stroke, being rate controlled with diltiazem drip 10mg/hr per certified industrial hygienist. Diltazem drip was stopped by the certified industrial hygienist on 12/26/2021 and the patient was started on PO diltiazem 60mg [id number]. was on heparin drip that was discontinued on 12/26/21 and has been switched to PO Eliquis 5mg BID by the certified industrial hygienist. (4) Diabetes: Code(s): E11.9 - Type 2 diabetes mellitus without complications Status: Acute Assessment and Plan: The patient takes metformin at home. Which is placed on hold Monitor Accu-Cheks ACHS and continue sliding scale insulin (5) Hypertension: Code(s): I10 - Essential (primary) hypertension Status: Acute Assessment and Plan: Continue losartan 100mg daily, PO hydralazine 50mg QID and PO diltiazem 60mg [id number] by the certified industrial hygienist. Continue IV hydralazine PRN for SBP>160, DBP> 110 Goal blood pressure systolic 160-180 mm Hg Continue to monitor (6) Leukocytosis: Code(s): D72.829 - Elevated white blood cell count, unspecified Status: Acute Assessment and Plan: Unclear etiology no source of infection evident, UA is negative, chest x-ray with haziness in right hemithorax could represent small pleural effusion atelectasis or pneumonia Mild lactic acidosis on admission On empiric cefepime. Continue cefepime for now Leukocytosis improved. He is also febrile Follow cultures (7) Acute hypokalemia: -K of 3.4, was managed with PO KCl 40meq daily, most recent K is 3.4 -contin
--- NOTE | 2021-12-27 08:29 | PM.PNCARD ---
Progress Note: A&P Assessment and Plan (1) Acute CVA (cerebrovascular accident): Code(s): I63.9 - Cerebral infarction, unspecified Status: Acute Assessment and Plan: Probably from cardioembolization. Neurology following. (2) Atrial fibrillation with rapid ventricular response: Code(s): I48.91 - Unspecified atrial fibrillation Status: Acute Assessment and Plan: [id number] 3. Started on heparin drip in ER to prevent further cardioembolization, and continue if OK from neurology standpoint. Rate controlled with Diltiazem 10 mg/hr. On Diltiazem 60 mg BID. Increase Diltiazem 90 mg BID. (3) Elevated troponin: Code(s): R77.8 - Other specified abnormalities of plasma proteins Status: Acute Assessment and Plan: Doubt ACS as he does not have signs/symptoms of it. Troponin peaked at 4.5. Probably due to acute stroke, hypertensive urgency, rapid atrial fibrillation. Echo shows EF 60-65%, mod LVH, diastolic dysfunction (E/e' 14), mod LAE, mild MR. (4) Hypertension: Code(s): I10 - Essential (primary) hypertension Status: Acute Assessment and Plan: High. Off nicardipine drip. On Losartan and Hydralazine, and Diltiazem. Increase Diltiazem dose. (5) NSVT (nonsustained ventricular tachycardia): Code(s): I47.2 - Ventricular tachycardia Status: Acute Assessment and Plan: Had 20 beat run last night 12/24/21. Low potassium. Replete to keep potassium>4.0. Subjective Date/time seen: 12/27/21 08:29 Denies chest pain or sob. Left arm is weak. Exam Const: General: cooperative, comfortable and alert Orientation/consciousness: oriented to person, No oriented to place and No oriented to time Resp: Auscultation: clear to auscultation bilaterally, no crackles, no rales, no rhonchi and no wheezes Cardio: Jugular venous distension: no JVD Rate: regular rate Rhythm: abnormal rhythm Heart sounds: no murmurs Peripheral pulses: dorsalis pedis present GI: GI Palp: No abdominal tenderness and Yes Soft to palpation Neuro: General: oriented to person, No oriented to place and No oriented to time Extrem: Right lower extremity: no edema Left lower extremity: no edema Objective Data Vital Signs Vital Signs: Vital Signs - 24 hr 12/26/21 10:00 12/26/21 12:00 12/26/21 13:45 Temperature 99.3 F Pulse Rate 94 79 Respiratory Rate 22 H Blood Pressure 178/103 H 141/88 H Pulse Oximetry 97 12/26/21 14:00 12/26/21 16:00 12/26/21 18:00 Temperature 99.7 F H Pulse Rate 84 86 106 H Respiratory Rate 18 Blood Pressure 172/110 H Pulse Oximetry 97 12/26/21 20:00 12/26/21 22:00 12/26/21 23:51 Temperature 99.8 F H 99.4 F Pulse Rate 122 H 104 H 103 H Respiratory Rate 20 19 Blood Pressure 176/123 H 148/86 H Pulse Oximetry 98 96 12/27/21 00:00 12/27/21 02:00 12/27/21 04:00 Temperature 98.2 F Pulse Rate 93 90 83 Respiratory Rate 15 Blood Pressure 179/94 H Pulse Oximetry 97 12/27/21 06:00 Temperature Pulse Rate 87 Respiratory Rate Blood Pressure Pulse Oximetry Intake/Output Intake/Output: Intake & Output 12/24/21 12/25/21 12/26/21 12/27/21 23:59 23:59 23:59 23:59 Intake Total 2075 2392 1520 150 Output Total 2350 5213 3352 1071 Balance -275 -1683 -1130 -1975 Meds/Results Medications: Active Medications Generic Name Dose Route Start Last Admin Trade Name Freq PRN Reason Stop Dose Admin Apixaban 5 mg 12/26/21 12:30 12/26/21 20:57 Apixaban 5 Mg Tablet PO 5 mg Q12HR GAGANDEEP Administration Dextrose 12.5 gm 12/22/21 19:06 Dextrose 50% 25 Gm/50 Ml Syringe IV PUSH PRN PRN Hypoglycemia Protocol Diltiazem HCl 60 mg 12/26/21 09:00 12/26/21 20:56 Diltiazem Hcl 12 Hr 60 Mg Cap.Er.12h PO 60 mg Q12HR GAGANDEEP Administration Glucagon 1 mg 12/22/21 19:06 Glucagon For Inj 1 Mg Vial IM PRN PRN Hypoglycemia Protocol Glucose 15 gm 12/22/21 19:06 G
[2021-12-27 08:43] LABS: Glucose Point of Care 116 mg/dl (65-105)
[2021-12-27] MEDS: hydrALAZINE HCL 50 MG TABLET PO ×4 (10:44→20:53)
[2021-12-27] MEDS: POTASSIUM CHLORIDE 20 MEQ PACKET (FOR LIQUID) 40 MEQ PO (10:44)
[2021-12-27] MEDS: APIXABAN 5 MG TABLET PO ×2 (10:44→20:53)
[2021-12-27] MEDS: PANTOPRAZOLE SODIUM IV 40 MG VIAL IV PUSH (10:44)
[2021-12-27] MEDS: LOSARTAN POTASSIUM 100 MG TABLET PO (10:44)
[2021-12-27] MEDS: dilTIAZem HCL 30 MG TABLET 90 MG PO ×2 (10:54→20:53)
[2021-12-27 12:09] LABS: Glucose Point of Care 137 mg/dl (65-105)
[2021-12-27 16:36] LABS: Glucose Point of Care 131 mg/dl (65-105)
--- NOTE | 2021-12-27 16:57 | PC.NURSE ---
This patient, Ander De Souza, was transferred to [facility] on 12/27/21 at 1655. Personal belongings sent with patient. Report given to yN AYALA. Appropriate documentation sent with patient.
--- NOTE | 2021-12-27 17:00 | PC.NURSE ---
This patient, Ander De Souza, was received from IMU on 12/27/21 at 1815. Patient/family oriented to unit policies and routines
[2021-12-27 21:38] LABS: Glucose Point of Care 104 mg/dl (65-105)
[2021-12-28 03:25] VITALS: BP 136/86; PULSE 80; RESP 17; TEMP 36.5; O2SAT 97
[2021-12-28 06:40] LABS: Basophils Absolute Auto 0.1 K/mm3 (0.0-0.1); Basophils Percent Auto 0.8 % (0.2-1.2); Eosinophils Absolute Auto 0.5 K/mm3 (0-0.3); Hematocrit 40.2 % (42.0-52.0); Hemoglobin 12.9 g/dL (14.0-18.0); Immature Granulocyte Absolute 0.16 K/mm3 (0.00-0.031); Immature Granulocyte Percent A 1.3 % (0-0.5); Lymphocytes Percent Auto 15.2 % (18.3-44.2); Mean Corpuscular HGB Conc 32.1 g/dl (32-36); Mean Corpuscular Hemoglobin 27.8 pg (26-34); Mean Corpuscular Volume 86.6 fl (80-100); Mean Platelet Volume 11.5 fl (7.4-10.4); Monocytes Percent Auto 8.4 % (2.6-8.5); Neutrophils Absolute Auto 8.4 K/mm3 (1.3-6.7); Neutrophils Percent Auto 70.3 % (45.5-73.1); Platelet Count Result 301 k/mm3 (150-375); Red Blood Count 4.64 M/mm3 (4.6-6.20); Red Cell Distribution Width 14.8 % (11.5-14.5); White Blood Count 11.9 K/mm3 (4.5-10.0)
[2021-12-28 06:54] LABS: Anion Gap 5 mmol/L (8-16); Blood Urea Nitrogen 26 mg/dL (9-20); Calcium 9.1 mg/dL (8.4-10.2); Carbon Dioxide 28 mmol/L (22-30); Chloride 104 mmol/L (98-107); Estimated CRCL calculation 89 ml/min; Estimated Glomerular Filt Rate 56; Glucose 111 mg/dL (65-110); Potassium 4.3 mmol/L (3.4-5.0); Sodium 137 mmol/L (137-145)
[2021-12-28 07:34] LABS: Glucose Point of Care 110 mg/dl (65-105)
--- NOTE | 2021-12-28 07:51 | PM.PNCARD ---
Progress Note: A&P Assessment and Plan (1) Acute CVA (cerebrovascular accident): Code(s): I63.9 - Cerebral infarction, unspecified Status: Acute Assessment and Plan: Probably from cardioembolization. Neurology following. (2) Atrial fibrillation with rapid ventricular response: Code(s): I48.91 - Unspecified atrial fibrillation Status: Acute Assessment and Plan: [id number] 3. On Diltiazem 90 mg BID and Eliquis 5 mg BID. (3) Elevated troponin: Code(s): R77.8 - Other specified abnormalities of plasma proteins Status: Acute Assessment and Plan: Doubt ACS as he does not have signs/symptoms of it. Troponin peaked at 4.5. Probably due to acute stroke, hypertensive urgency, rapid atrial fibrillation. Echo shows EF 60-65%, mod LVH, diastolic dysfunction (E/e' 14), mod LAE, mild MR. (4) Hypertension: Code(s): I10 - Essential (primary) hypertension Status: Acute Assessment and Plan: Stable. Off nicardipine drip. On Losartan and Hydralazine, and Diltiazem. (5) NSVT (nonsustained ventricular tachycardia): Code(s): I47.2 - Ventricular tachycardia Status: Acute Assessment and Plan: Had 20 beat run on 12/24/21. Low potassium. Replete to keep potassium>4.0. Subjective Date/time seen: 12/28/21 07:51 Oriented x1. Denies chest pain or sob. Left upper extremity is weak. Exam Const: General: cooperative, comfortable and alert Orientation/consciousness: oriented to person, No oriented to place and No oriented to time Resp: Auscultation: clear to auscultation bilaterally, no crackles, no rales, no rhonchi and no wheezes Cardio: Jugular venous distension: no JVD Rate: regular rate Rhythm: abnormal rhythm Heart sounds: no murmurs Peripheral pulses: dorsalis pedis present GI: GI Palp: No abdominal tenderness and Yes Soft to palpation Neuro: General: oriented to person, No oriented to place and No oriented to time Extrem: Right lower extremity: no edema Left lower extremity: no edema Objective Data Vital Signs Vital Signs: Vital Signs - 24 hr 12/27/21 08:00 12/27/21 10:00 12/27/21 10:16 Temperature Pulse Rate 86 93 115 H Respiratory Rate 19 Blood Pressure 179/54 H Pulse Oximetry 99 12/27/21 10:30 12/27/21 12:00 12/27/21 16:00 Temperature 99.6 F 99.4 F Pulse Rate 99 96 Respiratory Rate 18 18 Blood Pressure 152/83 H 142/89 H 139/84 Pulse Oximetry 97 97 12/27/21 19:10 12/27/21 20:00 12/27/21 23:40 Temperature 97.8 F 98.1 F Pulse Rate 82 84 Respiratory Rate 18 17 Blood Pressure 140/84 114/69 Pulse Oximetry 100 100 97 12/28/21 03:25 Temperature 97.7 F Pulse Rate 80 Respiratory Rate 17 Blood Pressure 136/86 Pulse Oximetry 97 Intake/Output Intake/Output: Intake & Output 12/25/21 12/26/21 12/27/21 12/28/21 23:59 23:59 23:59 23:59 Intake Total 2392 1520 1330 50 Output Total 4075 4283 7988 450 Balance -1683 -1130 -1995 -400 Meds/Results Medications: Active Medications Generic Name Dose Route Start Last Admin Trade Name Freq PRN Reason Stop Dose Admin Apixaban 5 mg 12/26/21 12:30 12/27/21 20:53 Apixaban 5 Mg Tablet PO 5 mg Q12HR GAGANDEEP Administration Dextrose 12.5 gm 12/22/21 19:06 Dextrose 50% 25 Gm/50 Ml Syringe IV PUSH PRN PRN Hypoglycemia Protocol Diltiazem HCl 90 mg 12/27/21 09:00 12/27/21 20:53 Diltiazem Hcl 30 Mg Tablet PO 90 mg Q12HR GAGANDEEP Administration Glucagon 1 mg 12/22/21 19:06 Glucagon For Inj 1 Mg Vial IM PRN PRN Hypoglycemia Protocol Glucose 15 gm 12/22/21 19:06 Glucose Oral Gel 15 Gm Of Glucse In 37.5 Gm Tube PO PRN PRN Hypoglycemia Protocol Hydralazine HCl 10 mg 12/24/21 14:45 12/27/21 06:05 Hydralazine Hcl 20 Mg/Ml Vial IV PUSH 10 mg Q8H PRN Administration SBP>160, DBP>110 Hydralazine HCl 50 mg 12/25/21 13:00 12/27/21 20:53 Hydralazine Hcl 50 Mg Tablet
[2021-12-28 08:00] VITALS: PULSE 80; RESP 17; O2SAT 97
[2021-12-28] MEDS: APIXABAN 5 MG TABLET PO (08:38)
[2021-12-28] MEDS: hydrALAZINE HCL 50 MG TABLET PO ×3 (08:38→17:42)
[2021-12-28] MEDS: dilTIAZem HCL 30 MG TABLET 90 MG PO (08:38)
[2021-12-28] MEDS: LOSARTAN POTASSIUM 100 MG TABLET PO (08:38)
[2021-12-28] MEDS: POTASSIUM CHLORIDE 20 MEQ PACKET (FOR LIQUID) 40 MEQ PO (08:39)
[2021-12-28] MEDS: PANTOPRAZOLE SODIUM IV 40 MG VIAL IV PUSH (08:39)
--- NOTE | 2021-12-28 10:10 | PC.NURSE ---
called MD Key, MD Key to see pt today, informed MD King.
--- NOTE | 2021-12-28 10:26 | PC.NURSE ---
MD Key, saw place this morning, per MD Key pt ok to discharge, MD King informed, jamil removed voiding trail started. Per care management, Rosio pt awaiting placement.
[2021-12-28 11:21] VITALS: O2SAT 90
--- NOTE | 2021-12-28 11:21 | PC.NURSE ---
informed MD King pt on ra 90%
[2021-12-28 12:02] LABS: Glucose Point of Care 94 mg/dl (65-105)
[2021-12-28 14:00] VITALS: BP 133/95; PULSE 93; RESP 18; TEMP 36.2; O2SAT 99
--- NOTE | 2021-12-28 16:06 | PC.NURSE ---
pt to discharge to [facility], awaiting discharge orders.
[2021-12-28 16:22] LABS: Glucose Point of Care 93 mg/dl (65-105)
--- NOTE | 2021-12-28 16:47 | PM.DS ---
DS: Admitting Diagnosis Discharge Date December 28, 2021 Admitting Diagnosis Acute CVA DS: Discharge Diagnosis Discharge Diagnosis (1) Acute CVA (cerebrovascular accident): Code(s): I63.9 - Cerebral infarction, unspecified Status: Acute (2) Atrial fibrillation with rapid ventricular response: Code(s): I48.91 - Unspecified atrial fibrillation Status: Acute DS: Summary Hospital Course Reason for hospitalization: Found unconscious at home by a caregiver Hospital Course: 41-year-old male with significant cognitive delay brought to the ER after caregiver found him unconscious at home. He was found to be in AFib with RVR and CT scan of the head showed acute CVA. Cardiology, Neurology and intensive care were all consulted and a bed was requested at [facility] but was unavailable. In the ER, it was noted that the patient fell out of bed and hit his head. Repeat CT showed no change from the initial CT scan. He was placed on a heparin drip as well as a Cardizem drip and given permissive hypertension parameters. Troponin did peak at 4.5, Cardiology thought this was secondary to AFib,, no ACS suspected. Stroke neurologist at [facility] recommended CTA of the head and neck images were performed and showed acute infarcts of the right frontoparietal region and left temporal parietal occipital region. No aneurysm or intracranial arterial stenosis was noted. Patient was cooperative and slowly improved. Due to elevated white count upon admission, empiric cefepime was started. Cultures were sent. Urinalysis was negative and chest x-ray was equivocal for pneumonia versus effusion. He was treated by PT, OT and ST. Echo was done and showed an EF of 60-65% with moderate LVH, diastolic dysfunction. The Cardizem drip was able to be weaned off and he was started on his losartan, hydralazine, and oral diltiazem. Noted to have a few episodes of low potassium the needed repleted and a few runs of V-tach that were nonspecific. The heparin drip was discontinued December 26, 2021 he was switched to oral Eliquis 5 mg b.i.d. His diltiazem dose was increased. His heart rate, blood pressure in symptoms all stabilized. He was cleared for discharge to inpatient rehab for further supportive care. Status at Discharge Functional status at discharge: independent ambulation Overall status at discharge: patient is progressing back to baseline Time Spent with Patient Time attestation: Total time spent providing and/or coordinating discharge services: DS: Data Data Completed and Pending Labs on day of discharge: Labs from last 24 hours 12/28/21 12/28/21 12/28/21 16:13 11:32 07:18 WBC RBC Hgb Hct MCV MCH MCHC RDW Plt Count MPV Immature Gran % (Auto) Neut % (Auto) Lymph % (Auto) Jasper % (Auto) Eos % (Auto) Baso % (Auto) Lymph # (Auto) Jasper # (Auto) Eos # (Auto) Baso # (Auto) Abs Immat Gran (auto) Absolute Neuts (auto) Absolute Nucleated RBC Nucleated RBC % Sodium Potassium Chloride Carbon Dioxide Anion Gap BUN Creatinine Estim Creat Clear Calc Estimated GFR Glucose POC Capillary Glucose 93 94 110 H Calcium 12/28/21 12/28/21 12/27/21 06:33 06:33 20:55 WBC 11.9 H RBC 4.64 Hgb 12.9 L Hct 40.2 L MCV 86.6 MCH 27.8 MCHC 32.1 RDW 14.8 H Plt Count 301 MPV 11.5 H Immature Gran % (Auto) 1.3 H Neut % (Auto) 70.3 Lymph % (Auto) 15.2 L Jasper % (Auto) 8.4 Eos % (Auto) 4.0 Baso % (Auto) 0.8 Lymph # (Auto) 1.80 Jasper # (Auto) 1.0 H Eos # (Auto) 0.5 H Baso # (Auto) 0.1 Abs Immat Gran (auto) 0.16 H Absolute Neuts (auto) 8.4 H Absolute Nucleated RBC 0.0 Nucleated RBC % 0.0 Sodium 137 Potassium 4.3 Chloride 104 Carbon Dioxide 28 Anion Gap 5 L BUN 26 H D Creatinine 1.40 H Estim Creat Clear Calc 89 Estimate
--- NOTE | 2021-12-28 17:10 | PC.NURSE ---
Called managed care nurse at [facility] [phone], awaiting call back
--- NOTE | 2021-12-28 17:18 | PC.NURSE ---
called report to [facility].
--- NOTE | 2021-12-28 17:25 | PC.NURSE ---
called report to Agata charge nurse at [facility], all questions and concerns answered.
--- NOTE | 2021-12-28 17:37 | PC.NURSE ---
abbot [address], [facility]
--- NOTE | 2021-12-28 18:05 | PC.NURSE ---
covid test send to lab for analysis for placement at rehab.
[2021-12-28 18:23] LABS: EDCOVIDSCREEN Negative (Negative)
--- NOTE | 2021-12-28 18:25 | PC.NURSE ---
pt covid negative.
--- NOTE | 2021-12-28 18:26 | PC.NURSE ---
[facility]
--- NOTE | 2021-12-28 18:51 | PC.NURSE ---
called ambulance new time 1929
== END 2021-12-28 20:00 | DRG 64 ==
LOC: ANHED 15:34 → ANHICU 15:39 → ANH2MED 12-27 17:45
PROVIDERS: Internal Medicine; Internal Medicine Cardiovascular Disease; Nurse Practitioner Adult Health; Admitting Provider Internal Medicine; Emergency Provider Emergency Medicine; Visit Provider Student in an Organized Health Care Education/Training Program
DX: I63.9 Cerebral infarction, unspecified (principal); J18.9 Pneumonia, unspecified organism; J90 Pleural effusion, not elsewhere classified; I47.2 Ventricular tachycardia; R41.82 Altered mental status, unspecified; R29.712 NIHSS score 12; I48.91 Unspecified atrial fibrillation; E11.9 Type 2 diabetes mellitus without complications; Z20.822 Contact with and (suspected) exposure to COVID-19; K44.9 Diaphragmatic hernia without obstruction or gangrene; I16.0 Hypertensive urgency; D72.829 Elevated white blood cell count, unspecified; W06.XXXA Fall from bed, initial encounter; E87.6 Hypokalemia
CPT/HCPCS: 36415; 70450; 70496; 70498; 71045; 80048; 80053; 81001; 82550; 82948; 83605; 83735; 84100; 84443; 84484; 85014; 85018; 85025; 85610; 85730; 87040; 87086; 87426; 92610; 93005; 93306; 96365; 96366; 96375; 97110; 97116; 97162; 97166; 97530; 97535; 99285; A9270; C9113; C9803; J0131; J0360; J0692; J1644; J3475; J3480; J7030; J7040; J7120; Q9967; U0003; U0005

== ENCOUNTER 2022-01-16 11:04 | Outpatient (NON) | payer MEDICARE, MEDICAID, SELFPAY ==
[2022-01-16 11:54] LABS: Alanine Aminotransferase 24 U/L (6-50); Albumin Level 4.7 g/dL (3.5-5.1); Alkaline Phosphatase 79 U/L (38-126); Anion Gap 14 mmol/L (8-16); Aspartate Amino Transferase 31 U/L (17-59); Bilirubin,Total 0.4 mg/dL (0.2-1.3); Blood Urea Nitrogen 16 mg/dL (9-20); Calcium 9.1 mg/dL (8.4-10.2); Carbon Dioxide 29 mmol/L (22-30); Chloride 100 mmol/L (98-107); Estimated Glomerular Filt Rate 56; Glucose 155 mg/dL (65-110); Potassium 3.5 mmol/L (3.4-5.0); Sodium 143 mmol/L (137-145)
== END 2022-01-16 11:05 | disposition home or self-care (01) ==
LOC: ANHLAB 11:13
PROVIDERS: Visit Provider Physical Medicine & Rehabilitation
DX: I48.91 Unspecified atrial fibrillation (principal); I47.2 Ventricular tachycardia; I10 Essential (primary) hypertension
CPT/HCPCS: 36415; 80053; 82248

== ENCOUNTER 2022-05-19 06:58 | Outpatient (CLI) | payer MEDICARE, SELFPAY ==
[2022-05-19 07:10] LABS: Basophils Absolute Auto 0.07 K/mm3 (0.00-0.10); Basophils Percent Auto 0.6 % (0.0-1.0); Eosinophils Absolute Auto 0.22 K/mm3 (0.02-0.50); Hematocrit 39.9 % (40.0-54.0); Hemoglobin 13.3 g/dL (14.0-18.0); Immature Granulocyte Absolute 0.07 K/mm3 (0.00-0.00); Immature Granulocyte Percent A 0.6 % (0.0-0.0); Lymphocytes Absolute Auto 1.93 K/mm3 (1.10-4.50); Lymphocytes Percent Auto 17.5 % (18.0-42.0); Mean Corpuscular HGB Conc 33.3 g/dL (32.0-36.0); Mean Corpuscular Volume 87.1 fL (78.0-102.0); Mean Platelet Volume 11.1 fl (8.7-11.0); Monocytes Absolute Auto 0.86 K/mm3 (0.10-0.90); Monocytes Percent Auto 7.8 % (2.0-11.0); Neutrophils Absolute Auto 7.9 K/mm3 (1.7-7.2); Neutrophils Percent Auto 71.5 % (50.0-70.0); Platelet Count Result 335 K/mm3 (150-420); Red Blood Count 4.58 M/mm3 (4.70-6.10); Red Cell Distribution Width 13.8 % (11.6-14.4)
[2022-05-19 08:00] LABS: Anion Gap 5 mmol/L (8-16); Blood Urea Nitrogen 24 mg/dL (7-18); Calcium 9.7 mg/dL (8.5-10.1); Carbon Dioxide 32 mmol/L (21-32); Chloride 102 mmol/L (98-108); Estimated Glomerular Filt Rate 43; Glucose 118 mg/dL (70-99); Osmolality Calculated 293 mOsm/kg (285-295); Potassium 3.7 mmol/L (3.5-5.1); Sodium 139 mmol/L (136-145)
== END 2022-05-19 06:59 | disposition home or self-care (01) ==
LOC: CHSLAB 07:00
PROVIDERS: PCP Family Medicine; Visit Provider Family Medicine
DX: I10 Essential (primary) hypertension (principal)
CPT/HCPCS: 36415; 80048; 85025

== ENCOUNTER 2022-08-28 07:08 | Outpatient (CLI) | payer MEDICARE, SELFPAY ==
[2022-08-28 07:36] LABS: Basophils Absolute Auto 0.06 K/mm3 (0.00-0.10); Basophils Percent Auto 0.6 % (0.0-1.0); Eosinophils Absolute Auto 0.14 K/mm3 (0.02-0.50); Eosinophils Percent Auto 1.4 % (1.0-6.0); Hematocrit 39.8 % (40.0-54.0); Hemoglobin 12.9 g/dL (14.0-18.0); Immature Granulocyte Absolute 0.04 K/mm3 (0.00-0.00); Immature Granulocyte Percent A 0.4 % (0.0-0.0); Lymphocytes Percent Auto 16.4 % (18.0-42.0); Mean Corpuscular HGB Conc 32.4 g/dL (32.0-36.0); Mean Corpuscular Hemoglobin 27.8 pg (27.0-31.0); Mean Corpuscular Volume 85.8 fL (78.0-102.0); Mean Platelet Volume 11.5 fl (8.7-11.0); Monocytes Absolute Auto 0.79 K/mm3 (0.10-0.90); Monocytes Percent Auto 7.6 % (2.0-11.0); Neutrophils Absolute Auto 7.6 K/mm3 (1.7-7.2); Neutrophils Percent Auto 73.6 % (50.0-70.0); Platelet Count Result 361 K/mm3 (150-420); Red Blood Count 4.64 M/mm3 (4.70-6.10); Red Cell Distribution Width 13.2 % (11.6-14.4); White Blood Count 10.4 K/mm3 (4.8-10.8)
[2022-08-28 08:33] LABS: Alanine Aminotransferase 30 U/L (16-63); Albumin Level 4.1 g/dL (3.4-5.0); Alkaline Phosphatase 104 U/L (46-116); Anion Gap 8 mmol/L (8-16); Aspartate Amino Transferase 22 U/L (15-37); Bilirubin,Total 0.6 mg/dL (0.00-1.00); Blood Urea Nitrogen 24 mg/dL (7-18); Calcium 9.4 mg/dL (8.5-10.1); Carbon Dioxide 31 mmol/L (21-32); Chloride 102 mmol/L (98-108); Estimated Glomerular Filt Rate 35; Glucose 114 mg/dL (70-99); Osmolality Calculated 297 mOsm/kg (285-295); Potassium 3.6 mmol/L (3.5-5.1); Sodium 141 mmol/L (136-145)
== END 2022-08-28 07:09 | disposition home or self-care (01) ==
LOC: CHSLAB 07:09
PROVIDERS: PCP Family Medicine; Visit Provider Family Medicine
DX: D64.9 Anemia, unspecified (principal)
CPT/HCPCS: 36415; 80053; 85025

== ENCOUNTER 2022-09-08 13:51 | Outpatient (CLI) | payer MEDICARE, MEDICAID, SELFPAY ==
--- NOTE | ~2022-09-08 | US_ITS ---
EXAMINATION: US renal BI DATE: 09/08/2022 14:18 INDICATION: Chronic kidney disease TECHNIQUE: Multiple grayscale and Doppler ultrasound images of the kidneys were obtained. COMPARISON: None. FINDINGS: The right kidney measures 11.2 x 5.4 x 5.3 cm. The left kidney is difficult to visualize bu t measures 10.5 x 4.9 x 6.3 cm. The kidneys demonstrate normal parenchymal echogenicity. There appear s to be mild cortical thinning of the kidneys. There is no hydronephrosis. The bladder demonstrates m ild wall thickening but is incompletely distended. IMPRESSION: 1. Probable mild atrophy of the kidneys. 2. Mild wall thickening of the urinary bladder which could be due to incomplete distention versus cys titis. Reviewed, dictated and finalized at location L. ENGINEERING SUPERVISOR IMPRESSION: 1. Probable mild atrophy of the kidneys. 2. Mild wall thickening of the urinary bladder which could be due to incomplete distention versus cystitis.
== END 2022-09-08 13:52 | disposition home or self-care (01) ==
LOC: CHSIMG 13:52
PROVIDERS: PCP Family Medicine; Visit Provider Family Medicine
DX: N18.32 Chronic kidney disease, stage 3b (principal); R93.41 Abnormal radiologic findings on diagnostic imaging of renal pelvis, ureter, or bladder
CPT/HCPCS: 76775

== ENCOUNTER 2022-10-17 17:55 | Emergency (ER) | payer MEDICARE, MEDICAID, SELFPAY ==
--- NOTE | ~2022-10-17 | CT_ITS ---
EXAMINATION: CT brain wo con DATE: 10/17/2022 18:35 INDICATION: history of stroke with left arm numbness . TECHNIQUE: Computed tomography (CT) of the head was performed without intravenous contrast. The mA wa s adjusted according to patient size. Iterative reconstruction technique was employed. The dose-lengt h product was 605.33 mGy-cm. COMPARISON: 12/22/2021. FINDINGS: No acute intracranial hemorrhage or extra-axial fluid collection. No hydrocephalus, mass, or herniation. No acute ischemic infarct. Unremarkable dural venous sinus attenuation. No acute osseous abnormality. The aerated spaces are clear. Mild atrophy and chronic white matter change. Mild atherosclerotic intracranial calcification. Left t emporoparietal and right posterior frontal encephalomalacia. Stable, partially calcified soft tissue nodule in the posterior scalp. IMPRESSION: No acute intracranial process. Reviewed, dictated and finalized at location K. TS STATISTICIAN
--- NOTE | ~2022-10-17 | CT_ITS ---
EXAMINATION: CT cervical spine wo con DATE: 10/17/2022 18:35 INDICATION: left arm numbness TECHNIQUE: Computed tomography (CT) of the cervical spine was performed without intravenous contrast. Automated exposure control and iterative reconstruction technique were employed. The dose-length pro duct was 620.78 mGy-cm. COMPARISON: None. FINDINGS: Vertebral Body Alignment: Intact. . Craniocervical and atlantoaxial alignment: Moderate degenerative change. Alignment intact. Osseous structures/fracture: No evidence of a lytic or blastic process in the visualized spine. No e vidence of acute fracture. . Cervical soft tissues: The paraspinal soft tissues planes are maintained. Degenerative changes: Mild degenerative changes, without severe neural foraminal or central canal matthias rowing. IMPRESSION: No acute fracture or traumatic malalignment in the cervical spine. Reviewed, dictated and finalized at location K. IGURATOR
[2022-10-17 17:58] VITALS: BP 147/92; PULSE 69; RESP 16; TEMP 36.4; O2SAT 100
[2022-10-17 18:02] VITALS: BP 147/92; PULSE 69; RESP 16; TEMP 36.4; O2SAT 100
--- NOTE | 2022-10-17 18:51 | ED.EXTPRO ---
HPI - Extremity Problem General Chief complaint: Extremity Problem,Nontraumatic Stated complaint: High BP Source: patient Mode of arrival: ambulatory Limitations: no limitations History of Present Illness HPI Narrative: this is a 41-year-old gentleman that has a history of stroke with left-sided weakness, that presents from shoulder care with history of bipolar disorder with a tingling in his left arm, with no neurological deficits has good range of motion his left arm is slightly weaker than the right but this is an old finding with residual status post stroke that occurred about 10 years ago. Has bicipital tenderness in his left shoulder with palpation has good range of motion and a brisk strong radial pulse on the left. Complaint: extremity pain Onset (ago): hour(s) Pain Consistency: intermittent Location: left Severity scale (1-10): 3 Quality: other ( tingling) Radiation: none Relieving factors: immobilization Exacerbating factors: nothing Related Data Home Medications Medication Instructions Recorded Confirmed hydrochlorothiazide 25 mg tablet 25 mg PO DAILY 10/17/22 10/17/22 Allergies Allergy/AdvReac Type Severity Reaction Status Date / Time No Known Allergies Allergy Verified 10/17/22 18:05 Review of Systems Review of Systems: All systems reviewed & are unremarkable except as noted in HPI and below PMFSH Past Medical History Medical History Atrial fibrillation with rapid ventricular response BPH (benign prostatic hyperplasia) Diabetes Hiatal hernia Hypertension Obesity (BMI 30-39.9) Family History Family History Father , Cause of unknown No problems noted. Mother Chronic renal disease, stage IV Other Unknown family medical history Social History Social History Social History: Patient lived in a retirement before father moved him into his home. Father has since . A caregiver checks in on him. Smoking status: Never smoker Alcohol intake: unknown Substance use: unknown Substance use type: unknown Living arrangements: alone Occupation/Education: unemployed Gender identity (if verbalized by the patient): Male Spiritual care concerns: Yes (Bahai) Exam Const: General: healthy appearing and no acute distress Nutritional Appearance: well nourished Limitations: no limitations HENMT: Head: normal to inspection Face/Nose/Sinus: Normal external nose present Face and sinus: normal facial exam Mouth: Yes Normal oral and palatal mucosa present Eyes: Conjunctivae: conjunctivae normal Pupils: Equal, round and reactive pupils present EOM: EOMs intact bilaterally Neck: Neck: normal visual inspection Chest: Chest palpation & inspection: normal inspection of the chest Resp: Effort & Inspection: normal respiratory effort Auscultation: clear to auscultation bilaterally Cardio: Rate: regular rate Rhythm: regular rhythm GI: GI Palp: Yes Soft to palpation Auscultation: normal bowel sounds : General: Yes bladder normal to palpation Urinary Catheter: Urinary Catheter: patent and draining Back/Spine/Pelvis: Back: no CVA tenderness Skin: Rashes: no rashes Wounds: no wounds Neuro: General: patient oriented x3 Cranial nerves: Yes Nystagmus not present Speech: normal speech Extrem: General: normal to inspection Psych: Mental Status: mental status grossly normal Attitude: cooperative Course Course Emergency Course: Patient in no acute distress no neurological deficits that are new, the patient had a CT scan of his brain and cervical spine that showed no acute findings. Vital Signs Vital signs: Vital Signs Temperature 36.4 C 10/17/22 17:58 Pulse Rate 69 10/17/22 17:58 Respiratory Rate 16 10/17/22 17:58 Blood Pressure 147/92 H 10/17/22 17:58 Pulse Oxi
[2022-10-17 19:03] VITALS: BP 155/99; PULSE 53; RESP 16; O2SAT 95
== END 2022-10-17 19:17 | disposition home or self-care (01) ==
PROVIDERS: Emergency Provider Emergency Medicine
DX: I69.354 Hemiplegia and hemiparesis following cerebral infarction affecting left non-dominant side (principal); I10 Essential (primary) hypertension; E11.9 Type 2 diabetes mellitus without complications; I48.91 Unspecified atrial fibrillation
CPT/HCPCS: 70450; 72125; 99284

== ENCOUNTER 2022-11-16 07:04 | Outpatient (CLI) | payer MEDICARE, SELFPAY ==
[2022-11-16 07:15] LABS: Basophils Absolute Auto 0.05 K/mm3 (0.00-0.10); Basophils Percent Auto 0.6 % (0.0-1.0); Eosinophils Absolute Auto 0.25 K/mm3 (0.02-0.50); Eosinophils Percent Auto 2.8 % (1.0-6.0); Hematocrit 38.1 % (40.0-54.0); Hemoglobin 12.7 g/dL (14.0-18.0); Immature Granulocyte Absolute 0.03 K/mm3 (0.00-0.00); Immature Granulocyte Percent A 0.3 % (0.0-0.0); Lymphocytes Absolute Auto 1.72 K/mm3 (1.10-4.50); Lymphocytes Percent Auto 19.5 % (18.0-42.0); Mean Corpuscular HGB Conc 33.3 g/dL (32.0-36.0); Mean Platelet Volume 11.2 fl (8.7-11.0); Monocytes Absolute Auto 0.73 K/mm3 (0.10-0.90); Monocytes Percent Auto 8.3 % (2.0-11.0); Neutrophils Absolute Auto 6.1 K/mm3 (1.7-7.2); Neutrophils Percent Auto 68.5 % (50.0-70.0); Platelet Count Result 288 K/mm3 (150-420); Red Blood Count 4.38 M/mm3 (4.70-6.10); Red Cell Distribution Width 13.5 % (11.6-14.4); White Blood Count 8.8 K/mm3 (4.8-10.8)
[2022-11-16 08:12] LABS: Alanine Aminotransferase 28 U/L (16-63); Albumin Level 3.9 g/dL (3.4-5.0); Alkaline Phosphatase 106 U/L (46-116); Anion Gap 5 mmol/L (8-16); Aspartate Amino Transferase 19 U/L (15-37); Bilirubin,Total 0.5 mg/dL (0.00-1.00); Blood Urea Nitrogen 24 mg/dL (7-18); Calcium 9.4 mg/dL (8.5-10.1); Carbon Dioxide 32 mmol/L (21-32); Chloride 103 mmol/L (98-108); Estimated Glomerular Filt Rate 42; Glucose 101 mg/dL (70-99); Osmolality Calculated 294 mOsm/kg (285-295); Potassium 3.9 mmol/L (3.5-5.1); Sodium 140 mmol/L (136-145); Total Protein 7.7 g/dL (6.4-8.2)
== END 2022-11-16 07:05 | disposition home or self-care (01) ==
LOC: CHSLAB 07:05
PROVIDERS: PCP Family Medicine; Visit Provider Family Medicine
DX: I10 Essential (primary) hypertension (principal)
CPT/HCPCS: 36415; 80053; 85025

== ENCOUNTER 2023-03-08 06:54 | Outpatient (CLI) | payer MEDICARE, SELFPAY ==
[2023-03-08 07:08] LABS: Basophils Absolute Auto 0.06 K/mm3 (0.00-0.10); Basophils Percent Auto 0.8 % (0.0-1.0); Eosinophils Absolute Auto 0.25 K/mm3 (0.02-0.50); Eosinophils Percent Auto 3.1 % (1.0-6.0); Hematocrit 39.7 % (40.0-54.0); Hemoglobin 13.6 g/dL (14.0-18.0); Immature Granulocyte Absolute 0.04 K/mm3 (0.00-0.00); Immature Granulocyte Percent A 0.5 % (0.0-0.0); Lymphocytes Absolute Auto 1.66 K/mm3 (1.10-4.50); Lymphocytes Percent Auto 20.9 % (18.0-42.0); Mean Corpuscular HGB Conc 34.3 g/dL (32.0-36.0); Mean Corpuscular Hemoglobin 29.6 pg (27.0-31.0); Mean Corpuscular Volume 86.3 fL (78.0-102.0); Mean Platelet Volume 11.1 fl (8.7-11.0); Monocytes Absolute Auto 0.58 K/mm3 (0.10-0.90); Monocytes Percent Auto 7.3 % (2.0-11.0); Neutrophils Absolute Auto 5.4 K/mm3 (1.7-7.2); Neutrophils Percent Auto 67.4 % (50.0-70.0); Platelet Count Result 300 K/mm3 (150-420); Red Cell Distribution Width 13.2 % (11.6-14.4); White Blood Count 7.9 K/mm3 (4.8-10.8)
[2023-03-08 07:32] LABS: Creatinine Urine 73.72 mg/dL (40-278)
[2023-03-08 07:34] LABS: MALB Creatinine Ratio 203.8 mg/g (0-30); Microalbumin Urine Random 150.3 mg/L
[2023-03-08 08:33] LABS: Alanine Aminotransferase 30 U/L (16-63); Alkaline Phosphatase 103 U/L (46-116); Anion Gap 9 mmol/L (8-16); Aspartate Amino Transferase 22 U/L (15-37); Bilirubin,Total 0.4 mg/dL (0.00-1.00); Blood Urea Nitrogen 27 mg/dL (7-18); Calcium 9.9 mg/dL (8.5-10.1); Carbon Dioxide 33 mmol/L (21-32); Chloride 102 mmol/L (98-108); Estimated Glomerular Filt Rate 40; Glucose 111 mg/dL (70-99); Osmolality Calculated 304 mOsm/kg (285-295); Potassium 3.9 mmol/L (3.5-5.1); Sodium 144 mmol/L (136-145); Total Protein 7.7 g/dL (6.4-8.2)
== END 2023-03-08 06:55 | disposition home or self-care (01) ==
LOC: CHSLAB 06:56
PROVIDERS: PCP Family Medicine; Visit Provider Family Medicine
DX: I10 Essential (primary) hypertension (principal)
CPT/HCPCS: 36415; 80053; 82043; 84443; 85025

== ENCOUNTER 2023-05-11 06:57 | Outpatient (CLI) | payer MEDICARE, SELFPAY ==
[2023-05-11 07:36] LABS: Hemoglobin A1C 5.7 % (<5.7)
[2023-05-11 07:55] LABS: Anion Gap 10 mmol/L (8-16); Blood Urea Nitrogen 25 mg/dL (7-18); Calcium 9.6 mg/dL (8.5-10.1); Carbon Dioxide 31 mmol/L (21-32); Chloride 101 mmol/L (98-108); Cholesterol 142 mg/dL (0-200); Estimated Glomerular Filt Rate 40; Glucose 114 mg/dL (70-99); HDL Direct 41 mg/dL (40-60); LDL Cholesterol Calculated 81 mg/dL (<130); Osmolality Calculated 299 mOsm/kg (285-295); Potassium 3.6 mmol/L (3.5-5.1); Sodium 142 mmol/L (136-145); Triglycerides 102 mg/dL (0-150)
[2023-05-11 11:21] LABS: Creatinine Urine 343.26 mg/dL (40-278); Total Protein Urine Random 99.5 mg/dL (0.0-11.9); Ur Ttl Prot Creatinine Ratio 0.29 mg/mg (0-0.20)
[2023-05-11 11:22] LABS: MALB Creatinine Ratio 114.4 mg/g (0-30); Microalbumin Urine Random 392.7 mg/L
== END 2023-05-11 06:58 | disposition home or self-care (01) ==
PROVIDERS: PCP Family Medicine; Visit Provider Family Medicine
DX: I10 Essential (primary) hypertension (principal); R73.9 Hyperglycemia, unspecified; R80.9 Proteinuria, unspecified
CPT/HCPCS: 36415; 80048; 80061; 82043; 82570; 83036; 84156

== ENCOUNTER 2023-07-05 08:24 | Outpatient (CLI) | payer MEDICARE, MEDICAID, SELFPAY ==
--- NOTE | ~2023-07-05 | US_ITS ---
Renal-Bladder ultrasound Clinical History: Proteinuria Technique: Real-time sonographic imaging of the kidneys and urinary bladder was performed. Findings: The right kidney measures 11.1 cm in length and the left kidney measures 11.9 cm. There is no hydronephrosis or renal calculus identified. Renal cortical echogenicity is within normal limits. No renal mass lesion is identified. The urinary bladder is markedly distended at the time of this exam. No intraluminal echoes are identi fied. No abnormal wall thickening is seen. Impression: Unremarkable ultrasound of the kidneys and urinary bladder. Reviewed, dictated and finalized at location M. H FILLER Impression: Unremarkable ultrasound of the kidneys and urinary bladder.
[2023-07-12 13:30] LABS: Creatinine, Random Urine 46 mg/dL (20-320); Total Protein/Creatinine Ratio 261 mg/g creat (25-148)
== END 2023-07-05 08:25 | disposition home or self-care (01) ==
LOC: CHSIMG 08:24
PROVIDERS: PCP Family Medicine; Visit Provider Family Medicine
DX: R80.1 Persistent proteinuria, unspecified (principal)
CPT/HCPCS: 76775; 82570; 84156; 84166

== ENCOUNTER 2023-10-25 08:16 | Outpatient (CLI) | payer MEDICARE, MEDICAID, SELFPAY ==
[2023-10-25 08:33] LABS: Basophils Absolute Auto 0.07 K/mm3 (0.00-0.10); Basophils Percent Auto 0.7 % (0.0-1.0); Eosinophils Absolute Auto 0.18 K/mm3 (0.02-0.50); Eosinophils Percent Auto 1.8 % (1.0-6.0); Hematocrit 42.2 % (40.0-54.0); Hemoglobin 14.1 g/dL (14.0-18.0); Immature Granulocyte Absolute 0.04 K/mm3 (0.00-0.00); Immature Granulocyte Percent A 0.4 % (0.0-0.0); Lymphocytes Absolute Auto 1.62 K/mm3 (1.10-4.50); Lymphocytes Percent Auto 16.5 % (18.0-42.0); Mean Corpuscular HGB Conc 33.4 g/dL (32.0-36.0); Mean Corpuscular Hemoglobin 28.8 pg (27.0-31.0); Mean Corpuscular Volume 86.1 fL (78.0-102.0); Mean Platelet Volume 11.3 fl (8.7-11.0); Monocytes Absolute Auto 0.77 K/mm3 (0.10-0.90); Monocytes Percent Auto 7.9 % (2.0-11.0); Neutrophils Absolute Auto 7.1 K/mm3 (1.7-7.2); Neutrophils Percent Auto 72.7 % (50.0-70.0); Platelet Count Result 304 K/mm3 (150-420); Red Cell Distribution Width 13.2 % (11.6-14.4); White Blood Count 9.8 K/mm3 (4.8-10.8)
[2023-10-25 09:08] LABS: Alanine Aminotransferase 29 U/L (16-63); Alkaline Phosphatase 109 U/L (46-116); Aspartate Amino Transferase 25 U/L (15-37); Bilirubin Direct 0.2 mg/dL (0-0.2); Bilirubin,Total 0.6 mg/dL (0.00-1.00); Total Protein 7.7 g/dL (6.4-8.2)
== END 2023-10-25 08:17 | disposition home or self-care (01) ==
LOC: CHSLAB 08:20
PROVIDERS: PCP Family Medicine; Visit Provider Family Medicine
DX: I12.9 Hypertensive chronic kidney disease with stage 1 through stage 4 chronic kidney disease, or unspecified chronic kidney disease (principal); D64.9 Anemia, unspecified; N18.30 Chronic kidney disease, stage 3 unspecified
CPT/HCPCS: 36415; 80076; 85025

== ENCOUNTER 2024-01-27 13:38 | Outpatient (CLI) | payer MEDICARE, MEDICAID, SELFPAY ==
--- NOTE | ~2024-01-27 | XR_ITS ---
EXAMINATION: XR chest 2V Exam Date/Time: 01/27/2024 14:17 CDT HISTORY: AFIB Comparison: 12/22/2021. RESULT: Lines, tubes, and devices: None. Lungs and pleura: Motion artifact in the lateral view. Granular meniscus calcifications. Otherwise cl ear. Cardiomediastinal silhouette: Stable. Other: No acute osseous or upper abdominal finding. IMPRESSION: No acute cardiopulmonary process. Reviewed, dictated and finalized at location K.
--- NOTE | 2024-01-27 13:45 | ECHO_ITS ---
Patient Info Name: Ander De Souza Age: 43 years : 1980 Gender: Male Ht: 70 in Wt: 230 lbs BSA: 2.30 m2 HR: 79 bpm BP: 109 / 81 mmHg Technical Quality: Fair Exam Date: 01/27/2024 1:35 PM Exam Location: Echo Lab Patient Status: Outpatient Admit Date: 01/27/2024 Staff Ordering Physician: Kevin Moody MD Window Cleaner: Matthew Cates RDCS Attending Provider: Kevin Moody MD Referring Physician: Heidy LOPEZ; Exam Type: CA echo doppler color flow Study Info Indications - afib Summary 1. Left ventricular chamber dimension is normal. 2. Left ventricular systolic function is normal, estimated at 60-65%. 3. There is mild concentric increased left ventricular wall thickness. 4. The left ventricular diastolic function is abnormal. 5. E/e' 10 is mildly elevated. 6. Left atrial chamber dimension is moderately enlarged. 7. There is trace mitral valve regurgitation. 8. There is trace tricuspid valve regurgitation. 9. No pulmonary hypertension, estimated pulmonary arterial systolic pressure is 13 mmHg. 10. The aortic root size at the sinus of Valsalva is borderline dilated at 4.0 cm.. Left Ventricle E/e' 10 is mildly elevated. Left ventricular chamber dimension is normal. Left ventricular systolic function is normal, estimated at 60-65%. There is mild concentric increased left ventricular wall thickness. The left ventricular diastolic function is abnormal. Right Ventricle Right ventricular chamber dimension is normal. Right ventricular systolic function is normal. Left Atria Left atrial chamber dimension is moderately enlarged. Right Atria Right atrial chamber dimension is normal. Aortic Valve The aortic valve is trileaflet. There is no aortic valve stenosis. There is no aortic valve regurgitation. Pulmonic Valve There is no pulmonic regurgitation. Mitral Valve There is no mitral valve stenosis. There is trace mitral valve regurgitation. Tricuspid Valve There is trace tricuspid valve regurgitation. No pulmonary hypertension, estimated pulmonary arterial systolic pressure is 13 mmHg. Pericardium/Pleural There is no pericardial effusion. Inferior Vena Cava Normal inferior vena cava with >50% collapse upon inspiration consistent with normal right atrial pressure, 5 mmHg. Aorta The aortic root size at the sinus of Valsalva is borderline dilated at 4.0 cm.. Left Ventricular Outflow Tract Name Value Normal LVOT 2D LVOT Diameter 2.2 cm LVOT Doppler LVOT Peak Velocity 116 cm/s LVOT Peak Gradient 5 mmHg LVOT Mean Gradient 3 mmHg LVOT VTI 23 cm LVOT VTI/AV VTI Ratio 0.7 LVOT Stroke Volume 85 ml Pulmonic Valve Name Value Normal PV Doppler PV Peak Velocity 106 cm/s PV Peak Gradient 4 mmHg Mitral V
== END 2024-01-27 13:39 | disposition home or self-care (01) ==
LOC: CHSIMG 13:41
PROVIDERS: PCP Family Medicine; Visit Provider Family Medicine
DX: I48.91 Unspecified atrial fibrillation (principal)
CPT/HCPCS: 71046; 93306

== ENCOUNTER 2024-03-15 19:34 | Outpatient (CLI) | payer MEDICARE, MEDICAID, SELFPAY ==
--- NOTE | 2024-03-20 20:38 | WPDSLEEPSTUD ---
Sleep Study Date of Study: 03/15/24 Ordering Provider: Kevin Moody MD Interpreting Physician: Dominique Vera MD Sleep Study Type: Split Polysomnogram Height: 1.73 m Weight: 125.645 kg Body Mass Index: 42.1 Neck Circumference (inches): 20 [employer]: 10 Reason for Sleep Study Hypersomnolence Sleep History Ander De Souza is a 43-year-old man with non refreshing sleep, wakes up tired and wakes up during the night short of breath. He frequently awakens from sleep feeling short of breath. He never wakes at night with heartburn, belching or coughing.??He frequently snores loudly enough that others complain. He never has trouble sleeping when he has a cold. He occasionally wakes up gasping for breath during the night. He never has breathing problems at night. He never sweats excessively at night. He occasionally falls asleep during the day. He occasionally falls asleep involuntarily, never falls asleep while driving. He never experiences loss of muscle tone with strong emotion. He occasionally has daytime difficulty at work due to excessive sleepiness. He never feels paralyzed on waking or falling asleep. He never experiences vivid dreams upon waking or falling asleep. He never feels afraid of going to sleep. He never has nightmares. He never recalls his dreams. He never has thoughts racing through his mind. He never feels sad or depressed. He occasionally feels anxiety. He never notices parts of his body jerk. He never kicks during the night. He occasionally feels crawling or aching feelings in his legs. He never feels leg pain at night. He occasionally has morning jaw pain, never grinds his teeth at night. He never feels bothered by pain during the day, never awakened by pain during the night. He occasionally wakes up feeling stiff in the morning, and he never wakes feeling sore or achy. He never awakens with pain in his neck, spine, or joints. Normal bedtime is 7:00 p.m., falling asleep sometimes within a few minutes but he is not really sure. He wakes 3-4 times at night, goes to the bathroom, returns to sleep easily. His normal wake time is 6:00 a.m.. He keeps the same schedule on weekends. He is disabled. He typically gets 8 hours of sleep per night. He takes naps in the day, and he may feel refreshed after short 10-15 minute nap. He feels better in the morning compared to other times of day. Habits:??Tobacco: Never smoker Caffeine: Occasionally Alcohol: none Recreational substances: none PMFSH Past Medical History Medical History Atrial fibrillation with rapid ventricular response BPH (benign prostatic hyperplasia) Diabetes Hiatal hernia Hypertension Obesity (BMI 30-39.9) Family History Family History Father , Cause of unknown No problems noted. Mother Chronic renal disease, stage IV Other Unknown family medical history Social History Social History Social History: Patient lived in a detention before father moved him into his home. Father has since . A caregiver checks in on him. Smoking status: Never smoker Alcohol intake: unknown Substance use: unknown Substance use type: unknown Living arrangements: alone Occupation/Education: unemployed Gender identity (if verbalized by the patient): Male Spiritual care concerns: Yes (Zoroastrianism) Medications Home Medications Medication Instructions Recorded Confirmed Type apixaban 5 mg tablet (Eliquis) 5 mg PO Q12HR 30 days #60 tabs 01/06/22 10/17/22 Rx ezetimibe 10 mg tablet (Zetia) 10 mg PO QAM 1 month #30 tabs 01/06/22 10/17/22 Rx fluoxetine 20 mg tablet 40 mg PO BID 1 month #120 tabs 01/06/22 10/17/22 Rx losartan 100 mg tablet 100 mg PO DAILY 1 month #30 tabs 01/06/22 10/17/22 R
[2024-03-21 15:11] VITALS: BMI 42.1
== END 2024-03-16 06:50 | disposition home or self-care (01) ==
PROVIDERS: PCP Family Medicine; Visit Provider Family Medicine
DX: G47.33 Obstructive sleep apnea (adult) (pediatric) (principal); Z68.41 Body mass index [BMI] 40.0-44.9, adult
CPT/HCPCS: 95811

== ENCOUNTER 2025-04-25 07:48 | Outpatient (CLI) | payer MEDICARE, MEDICAID, SELFPAY ==
--- OUTSIDE RECORDS SUMMARY | 2025-04-25 07:54 | XMS_ITS | Clinical Summary ---
Author Organization [facility] Address [address] [place] [address] Care Team Providers Care Language Tutor Name Role Phone [facility] (Former[facility]) Primary Care Provi nirav Source Comments [facility],non-owned Affiliates and Associated Physician Practices is amultiple site organization consisting of ambulatory clinics and hospital sitesin [place], [place], [place] and [place]. This disclosure is being madepursuant to the Care Everywhere program and may not contain all information available regarding this patient. Last updated 18.[facility] Allergies Active Allergy Reactions Criticality Noted Date Comments Other 10/18/2012 Bees Medications * Be aware that medications may not be up to date on this document. Alwaysverify current medications with the patient. ALLOPURINOL PO Take by mouth. Active ranitidine (ZANTAC) 150 MG capsule Take 150 mg by mouth 2 times daily. Active METAPROTERENOL SULFATE PO Take by mouth. Acti ve PredniSONE, Saravanan, 10 MG TABS Take 6 pills by mouth daily for the first 6 days. Day 7 and 8 take 5 pills by mouth daily Day 9 and 10 take 4 pills by mouth daily Day 11 and 12 take 3 pills by mouth daily Day 13 and 14 take 2 pills by mouth daily Day 15 and 16 take 1 pill by mouth daily 66 Tab 0 3 Active Artificial Tears 0.1-0.3 % SOLN 1 Drop by Ophthalmic route 3 times daily as needed. 1 Bottle 0 3 Active Social History Tobacco Use Types Packs/Day Years Used Date Smoking Tobacco: Never Assessed Smokeless Tobacco: Current Chew Sex and Gender Information Value Date Recorded Sex Assigned at Not on file Legal Sex Male 10:29 AM BACTERIOLOGIST [employer]ERY Gender Identity Not on file Sexual Orientation Not on file Last Filed Vital Signs Vital Sign Reading Time Taken Comments Blood Pressure 167/96 10/18/2012 8:00 PM BACTERIOLOGIST [employer]ERY Pulse 70 10/18/2012 8:00 PM BACTERIOLOGIST [employer]ERY Temperature 36.7 C (98 F) 10/18/2012 7:06 PM BACTERIOLOGIST [employer]ERY Respiratory Rate 20 10/18/2012 8:00 PM BACTERIOLOGIST [employer]ERY Oxygen Saturation 95% 10/18/2012 8:00 PM BACTERIOLOGIST FISHERY Inhaled Oxygen Concentration - - Weight 141.5 kg (311 lb 15.2 oz) 10/18/2012 7:06 PM BACTERIOLOGIST [employer]ERY Height - - Body Mass Index - - Plan of Treatment Health Maintenance Due Date Last Done Comments LIPID TESTING 1982 HIV SCREENING 1997 HEPATITIS C SCREENING 12/04/2000 DTAP/TDAP/TD VACCINES (1 - Tdap) 2001 HEPATITIS B VACCINE (1 of 3 - 19+ 3-dose series) 2001 HPV VACCINE (1 - 3-dose SCDM series) 2009 COVID-19 VACCINE (1 - 2023-2 5 season) 2024 DEPRESSION SCREENING 08/30/2024 INFLUENZA VACCINE (#1) 2025 ZOSTER VACCINE (1 of 2) 2032 HIB VACCINE Aged Out No longer eligi ble based on patient's age to complete this topic MENINGOCOCCAL (Group B) VACC INE SHARED DECISION-MAKING Aged Out No longer eligibl e based on patient's age to complete this topic MENINGOCOCCAL GROUPS A/C/Y/W VACCINE Aged Out No longer eligible b ased on patient's age to complete this topic PNEUMOCOCCAL VACCINE Aged Out No long er eligible based on patient's age to complete this topic Insurance MEDICAID - [place] MEDICARE MEDICAID - OUT OF STATE Care Teams Language Tutor Relationship Specialty Start Date End Date [facility] (Former[facility]) [address] [place] [address] PCP - General 03/19/21
--- OUTSIDE RECORDS SUMMARY | 2025-04-25 07:54 | XMS_ITS | Patient Health Record ---
Author Organization [facility] Address [address] [place] [address] Care Team Providers Care Field Staff Name Role Phone Abbie Elmore Unavailable [phone] Reason For Referral No Information Medications Medication SIG (Take, Route, Frequency, Duration) Notes Start Date End Date Status Mirtazapine 30 MG Tablet Oral 09/25/2022 Active Mirtazapine 15 MG Tablet Oral 09/25/2022 Active amLODIPine Besylate 10 MG Tablet Oral 09/25/2022 Active Nystop 230985 UNIT/GM Powder External 09/25/2022 Active Losartan Potassium 100 MG Tablet Oral 09/25/2022 Active dilTIAZem HCl ER Beads 180 M G Capsule Extended Release 24 Hour Oral 09/25/2022 Active dilTIAZem HCl 90 mg Tablet Oral 09/25/2022 Active Ezetimibe 10 MG Tablet Oral 09/25/2022 Active FLUoxetine HCl 40 MG Capsule Oral 09/25/2022 Active hydroCHLOROthiazide 25 MG Tablet Oral 09/25/2022 Active Metoprolol Succinate ER 25 M G Tablet Extended Release 24 Hour Oral 09/25/2022 Active Pravastatin Sodium 40 MG Tablet Oral 09/25/19 Active Eliquis 5 MG Tablet Oral 09/25/2022 Active Social History Social History Additional Details Category Social Info Options Details Migrated Social History Migrated Social History Alcohol Intake: None 01/23/2022,Tobacco Years: Never smoker 01/23/2022 Plan Of Treatment No Information Insurance Providers Payer Name Payer Address Payer Phone Subscriber Number Group Number Insured Name Patient Relationship to Insured Coverage Start Date Coverage End Date Medicare-I l Medicare [address] [place] [phone] [id number] ROBERT SANTAMARIA Self - patient is the insured Medicaid-I l Medicaid [address] [address] [place] [phone] [id number] ROBERT SANTAMARIA Self - patient is the insured
== END 2025-04-25 07:49 | disposition home or self-care (01) ==
PROVIDERS: PCP Family Medicine
DX: N18.9 Chronic kidney disease, unspecified (principal); I12.9 Hypertensive chronic kidney disease with stage 1 through stage 4 chronic kidney disease, or unspecified chronic kidney disease
CPT/HCPCS: 99199

== ENCOUNTER 2025-07-23 12:15 | Outpatient (CLI) | payer MEDICARE, MEDICAID, SELFPAY ==
[2025-07-23 12:37] LABS: Add Urine Microscopic? YES; Appearance Urine Clear (Clear); Glucose Urine UA Negative (Negative); Leukocyte Esterase Ur Negative (Negative); Nitrate Urine Negative (Negative); Specific Grav Ur 1.020 (1.010-1.020)
[2025-07-23 12:42] LABS: Total Protein Urine Random 52 mg/dL; Ur Ttl Prot Creatinine Ratio 0.17 mg/mg (0-0.20)
[2025-07-23 13:21] LABS: Albumin Level 4.9 g/dL (3.5-5.1); Anion Gap 14 mmol/L (4-12); Blood Urea Nitrogen 24 mg/dL (9-20); Calcium 9.8 mg/dL (8.4-10.2); Carbon Dioxide 28 mmol/L (22-30); Chloride 105 mmol/L (98-107); Estimated Glomerular Filt Rate 47; Glucose 106 mg/dL (65-110); Osmolality Calculated 308 mOsm/kg (285-295); Potassium 4.1 mmol/L (3.4-5.0); Sodium 147 mmol/L (137-145)
--- OUTSIDE RECORDS SUMMARY | 2025-07-23 14:08 | XMS_ITS | Clinical Summary ---
Author Organization [facility] Address [address] [place] [address] Care Team Providers Care Marine Structural Designer Name Role Phone Kevin Moody MD Primary Care Provider [phone] Allergies No known active allergies Medications losartan (COZAAR) 100 MG tablet Take 100 mg by mouth daily. Active pravastatin (PRAVACHOL) 40 MG tablet Take 40 mg by mouth daily. Active apixaban (ELIQUIS) 5 MG tablet Take 5 mg by mouth 2 (two) times daily. Active ezetimibe (ZETIA) 10 MG tablet Take 10 mg by mouth daily. Active FLUoxetine (PROZAC) 40 MG capsule Take 40 mg by mouth 2 (two) times daily. Active amLODIPine (NORVASC) 10 MG tablet Take 10 mg by mouth daily. Active cariprazine (VRAYLAR) 1.5 MG capsule Take 1.5 mg by mouth daily. Active acetaminophen (TYLENOL) 325 MG tablet Take 650 mg by mouth every 4 (four) hours as needed for Pain. Active guaiFENesin (ROBITUSSIN) 100 MG/5ML solution Take 200 mg by mouth every 4 (four) hours as needed for Cough. Active bismuth subsalicylate (PEPTO BISMOL) 262 mg/15mL suspension Take 30 mLs by mouth every hour as needed for Indigestion. Active mirtazapine (REMERON) 30 MG tablet Take 30 mg by mouth nightly at bedtime. Active dilTIAZem ER 180 MG 24 hr capsule Take 180 mg by mouth daily. Active metoprolol succinate ER (TOPROL-XL) 25 MG 24 hr tablet Take 25 mg by mouth daily. Active Active Problems Problem Noted Date Diagnosed Date Otalgia of left ear 10/20/2024 Essential (primary) hypertension 10/20/2024 Hyperglycemia 10/20/2024 Anemia, unspecified 10/20/2024 Body mass index (BMI) 40.0-44.9, adult CKD stage 3b, GFR 30-44 ml/min 10/20/2024 Unspecified atrial fibrillation 10/20/2024 Obstructive sleep apnea, adult 10/20/2024 Proteinuria, unspecified 10/20/2024 Social History Tobacco Use Types Packs/Day Years Used Date Smoking Tobacco: Never Assessed Sex and Gender Information Value Date Recorded Sex Assigned at Not on file Legal Sex Male 5:05 PM CDT Gender Identity Not on file Sexual Orientation Not on file Last Filed Vital Signs Vital Sign Reading Time Taken Comments Blood Pressure 121/74 11/20/2024 9:56 AM CDT Pulse - - Temperature - - Respiratory Rate - - Oxygen Saturation - - Inhaled Oxygen Concentration - - Weight 129.2 kg (284 lb 12.8 oz) 11/20/2024 9:56 AM CDT Height 172.7 cm (5' 8) 11/20/2024 9:56 AM CDT Body Mass Index 43.3 11/20/2024 9:56 AM CDT Plan of Treatment Health Maintenance Due Date Last Done Comments Annual Physical 1985 Hepatitis C 2000 DTaP, Tdap and Td Vaccines (1 - Tdap) 2001 Hepatitis B Vaccines (1 of 3 - 19+ 3-dose series) 2001 HPV Vaccines (1 - 3-dose SCDM series) 2009 COVID-19 Vaccine ( - season) 2025 10/15/2020, 09/13/2020 Influenza Adult (#1) 2025 07/07/2023, 05/17/2023, 06/07/2022, Additional history exists Hepatitis A Vaccines Aged Out No long er eligible based on patient's age to complete this topic Meningococcal B Vaccine Aged Out No l onger eligible based on patient's age to complete this topic Meningococcal Vaccine Aged Out No joe doug eligible based on patient's age to complete this topic Pneumococcal Vaccine: Pediatrics (0 to 5 Years) and At-Risk Patients (6 to 49 Years) Aged Out No longer eligible based on patient's age to complete this topic RSV Immunizations Under 20 Months Aged Out No longer eligible based on patient's age to complete this topic Insurance [facility] MEDICARE Care Teams Marine Structural Designer Relationship Specialty Start Date End Date Kevin Moody MD [address] [place] [address] PCP - General FAMILY PRACTICE 10/24/24
--- OUTSIDE RECORDS SUMMARY | 2025-07-23 14:08 | XMS_ITS | Clinical Summary ---
Author Organization [facility] Address [address] [place] [address] Care Team Providers Care Junior Engineer Name Role Phone [facility] ([facility]) Primary Care Provi nirav Source Comments [facility],non-owned Affiliates and Associated Physician Practices is amultiple site organization consisting of ambulatory clinics and hospital sitesin [place], [place], [place] and [place]. This disclosure is being madepursuant to the Care Everywhere program and may not contain all information available regarding this patient. Last updated 18.[facility] Allergies Active Allergy Reactions Criticality Noted [...] on file Legal Sex Male 10:29 AM SALES REPRESENTATIVE [employer] Gender Identity Not on file Sexual Orientation Not on file Last Filed Vital Signs Vital Sign Reading Time Taken Comments Blood Pressure 167/96 10/18/2012 8:00 PM SALES REPRESENTATIVE [employer] Pulse 70 10/18/2012 8:00 PM SALES REPRESENTATIVE [employer] Temperature 36.7 C (98 F) 10/18/2012 7:06 PM SALES REPRESENTATIVE [employer] Respiratory Rate 20 10/18/2012 8:00 PM SALES REPRESENTATIVE [employer] Oxygen Saturation 95% 10/18/2012 8:00 PM SALES REPRESENTATIVE [employer] Inhaled Oxygen Concentration - - Weight 141.5 kg (311 lb 15.2 oz) 10/18/2012 7:06 PM SALES REPRESENTATIVE [employer] Height - - Body Mass Index - - Plan of Treatment Health Maintenance Due Date Last Done Comments LIPID TESTING 1982 HIV SCREENING 1997 HEPATITIS C SCREENING 12/04/2000 DTAP/TDAP/TD VACCINES (1 - Tdap) 2001 HEPATITIS B VACCINE (1 of 3 - 19+ 3-dose series) 2001 HPV VACCINE (1 - 3-dose SCDM series) 2009 DEPRESSION SCREENING 08/30/2024 COVID-19 VACCINE (1 - 2024-2 6 season) 2025 INFLUENZA VACCINE (#1) 2025 ZOSTER VACCINE (1 [...] to complete this topic Insurance MEDICAID - [place] MEDICARE MEDICAID - OUT OF STATE Care Teams Junior Engineer Relationship Specialty Start Date End Date [facility] ([facility]) [address] [place] [address] PCP - General 03/19/21
== END 2025-07-23 12:16 | disposition home or self-care (01) ==
PROVIDERS: PCP Family Medicine
DX: N18.9 Chronic kidney disease, unspecified (principal)
CPT/HCPCS: 36415; 80069; 81001; 82570; 84156